=== PATIENT | female | born 1930 | race Caucasian/White ===

== ENCOUNTER → 2016-06-17 | Outpatient (CLI) | payer MEDICARE, BC ==
--- NOTE | 2016-06-17 13:11 | FL ---
EXAMINATION TYPE: FL barium swallow w video DATE OF EXAM: 06/17/2016 12:08 PM COMPARISON: NONE HISTORY: Dysphagia, R13.10. FINDINGS: Patient was evaluated in real-time fluoroscopy in the lateral projection while ingesting barium mixe d with liquids and solids. No aspiration. Patient's cough reflex was intact. Some laryngeal penetra tion was present on thin liquids. See dictated report from speech pathology.
== END | disposition home or self-care (01) ==
LOC: RADFLMAIN 10:58
PROVIDERS: ATTEND Family Medicine
DX: R13.10 Dysphagia, unspecified (principal)
CPT/HCPCS: 74230

== ENCOUNTER → 2016-09-10 | Outpatient (CLI) | payer MEDICARE, BC ==
[2016-09-10 16:05] LABS: ANA w/Reflex to Titer NEGATIVE (NEGATIVE)
[2016-09-12 06:20] LABS: Vitamin E (Alpha Tocopherol) 1185 ug/dL (500-1800)
== END ==
LOC: LABWHC1 09:39
PROVIDERS: ATTEND Psychiatry & Neurology Neurology
DX: G62.9 Polyneuropathy, unspecified (principal); G25.9 Extrapyramidal and movement disorder, unspecified; R27.0 Ataxia, unspecified
CPT/HCPCS: 36415; 82390; 82525; 82550; 82607; 82747; 84165; 84207; 84439; 84443; 84446; 84630; 85652; 86038

== ENCOUNTER 2016-09-17 15:26 | Emergency (ER) | payer MEDICARE, BC ==
[2016-09-17] MEDS ORDERED: SODIUM CHLORIDE 0.9% 1,000 ML IV ONE (15:51)
[2016-09-17] MEDS ORDERED: LABETALOL 5 MG/ML VIAL MDV IVP STA (16:01)
[2016-09-17 16:08] LABS: Glucose,Whole Blood 98 mg/dL (75-99)
--- NOTE | 2016-09-17 16:09 | ED ---
General Adult HPI - General Chief complaint: Altered Mental Status Stated complaint: altered mental status Time Seen by Provider: 09/17/16 15:44 Source: patient, EMS Mode of arrival: EMS Limitations: altered mental status - History of Present Illness Initial comments: 86 female date ER for evaluation of altered mental status patient has history of mild heart disease. Patient was having some possible slurred speech earlier speaking slow per family member. Patient is suffering from difficult to control blood pressure as of late. Patient denies any neurological complaints, family states patient's symptoms at this time I resolved. No abnormalities in patient's speech or mental status. Patient states she feels fine. No trauma no fevers no cough no congestion of chest pain recent abdominal pain no nausea vomiting or diarrhea. No change in medications. - Related Data Home Medications Medication Instructions Recorded Confirmed Aspirin EC [Ecotrin Low Dose] 81 mg PO DAILY 09/17/16 09/17/16 Atorvastatin [Lipitor] 10 mg PO DAILY 09/17/16 09/17/16 Cetirizine HCl [Zyrtec] 10 mg PO DAILY PRN 09/17/16 09/17/16 Cholecalciferol [Vitamin D3] 2,000 unit PO DAILY 09/17/16 09/17/16 Diclofenac Potassium [Cataflam] 50 mg PO BID PRN 09/17/16 09/17/16 Docusate [Colace] 100 mg PO DAILY 09/17/16 09/17/16 Omeprazole 40 mg PO AC-BRKFST 09/17/16 09/17/16 Ubidecarenone [Co Q-10] 100 mg PO DAILY 09/17/16 09/17/16 Previous Rx's Medication Instructions Recorded Folic Acid 1 mg PO DAILY@1200 #30 tab 09/19/16 Multivitamins, Thera [Multivitamin 1 each PO DAILY@1200 #30 tab 09/19/16 (formulary)] Thiamine [Vitamin B-1] 100 mg PO DAILY@1200 #30 tab 09/19/16 Fludrocortisone [Florinef] 0.1 mg PO DAILY #30 tab 09/20/16 Losartan [Cozaar] 25 mg PO BID #60 tab 09/20/16 amLODIPine [Norvasc] 5 mg PO BID #60 tab 09/20/16 Allergies Allergy/AdvReac Type Severity Reaction Status Date / Time Iodinated Contrast Media - AdvReac Nausea & Verified 09/17/16 19:38 Oral and Vomiting Review of Systems ROS Statement: Those systems with pertinent positive or pertinent negative responses have been documented in the HPI. ROS Other: All systems not noted in ROS Statement are negative. Past Medical History Past Medical History: Hyperlipidemia, Hypertension Additional Past Medical History / Comment(s): patient states she has "balance problems" and walks with a walker History of Any Multi-Drug Resistant Organisms: None Reported Past Surgical History: Tonsillectomy Additional Past Surgical History / Comment(s): right side mastectomy Past Psychological History: No Psychological Hx Reported Smoking Status: Former smoker Past Alcohol Use History: None Reported Past Drug Use History: None Reported General Exam Limitations: altered mental status General appearance: alert, in no apparent distress Head exam: Present: atraumatic, normocephalic, normal inspection Eye exam: Present: normal appearance, PERRL, EOMI. Absent: scleral icterus, conjunctival injection, periorbital swelling ENT exam: Present: normal exam, mucous membranes moist Neck exam: Present: normal inspection. Absent: tenderness, meningismus, lymphadenopathy Respiratory exam: Present: normal lung sounds bilaterally. Absent: respiratory distress, wheezes, rales, rhonchi, stridor Cardiovascular Exam: Present: regular rate, normal rhythm, normal heart sounds. Absent: systolic murmur, diastolic murmur, rubs, gallop, clicks GI/Abdominal exam: Present: soft, normal bowel sounds. Absent: distended, tenderness, guarding, rebound, rigid Extremities exam: Present: normal inspection, full ROM, normal capillary refill. Absent: tenderness, pedal edema, joint swelling, calf tenderness Back exam: Present: normal inspection Neurological exam: Present: alert, oriented X3, CN II-XII intact Psychiatric exam: Present: normal affect, normal mood Skin exam: Present: warm, dry, intact, normal color. Absent: rash Course Vital Signs 09/17/16 09/17/16 09/17/16 15:29 16:38 16:44 Temperature 96.1 F L Pulse Rate 95 68 68 Respiratory 16 18 18 Rate Blood Pressure 216/107 200/100 116/59 O2 Sat by Pulse 98 95 99 Oximetry 09/17/16 09/17/16 16:49 18:24 Temperature 97.7 F Pulse Rate 68 80 Respiratory 18 18 Rate Blood Pressure 137/68 173/93 O2 Sat by Pulse 99 100 Oximetry EKG Findings - EKG Comments: EKG Findings:: EKG shows sinus rhythm rate of 94, NM 180, QRS 80, QTC 470 Medical Decision Making - Medical Decision Making 86 female here for evaluation. Patient coming in for evaluation of altered mental status, CT brain x-ray laboratory is negative, patient's blood pressure is now improved in mental status is improving can be discharged home - Lab Data Result diagrams: 09/17/16 15:50 09/17/16 15:50 Lab Results 09/17/16 09/17/16 09/17/16 Range/Units 15:50 15:50 15:50 WBC 6.5 (3.8-10.6) k/uL RBC 4.67 (3.80-5.40) m/uL Hgb 13.6 (11.4-16.0) gm/dL Hct 42.2 (34.0-46.0) % MCV 90.4 (80.0-100.0) fL MCH 29.2 (25.0-35.0) pg MCHC 32.3 (31.0-37.0) g/dL RDW 14.8 (11.5-15.5) % Plt Count 252 (150-450) k/uL Neutrophils % 52 % Lymphocytes % 37 % Monocytes % 6 % Eosinophils % 2 % Basophils % 1 % Neutrophils # 3.4 (1.3-7.7) k/uL Lymphocytes # 2.4 (1.0-4.8) k/uL Monocytes # 0.4 (0-1.0) k/uL Eosinophils # 0.1 (0-0.7) k/uL Basophils # 0.1 (0-0.2) k/uL PT (9.0-12.0) sec INR (<1.1) APTT (22.0-30.0) sec Sodium (137-145) mmol/L Potassium (3.5-5.1) mmol/L Chloride (98-107) mmol/L Carbon Dioxide (22-30) mmol/L Anion Gap mmol/L BUN (7-17) mg/dL Creatinine (0.52-1.04) mg/dL Est GFR (MDRD) Af Amer (>60 ml/min/1.73 sqM) Est GFR (MDRD) Non-Af (>60 ml/min/1.73 sqM) Glucose (74-99) mg/dL POC Glucose (mg/dL) (75-99) mg/dL POC Glu Animal Surgeon ID Calcium (8.4-10.2) mg/dL Total Bilirubin (0.2-1.3) mg/dL AST (14-36) U/L ALT (9-52) U/L Alkaline Phosphatase (38-126) U/L Ammonia <9 (<30) umol/L Total Creatine Kinase 37 (30-135) U/L CK-MB (CK-2) 1.1 (0.0-2.4) ng/mL CK-MB (CK-2) Rel Index 3.0 Troponin I <0.012 (0.000-0.034) ng/mL Total Protein (6.3-8.2) g/dL Albumin (3.5-5.0) g/dL Urine Color Urine Appearance (Clear) Urine pH (5.0-8.0) Ur Specific [place] (1.001-1.035) Urine Protein (Negative) Urine Glucose (UA) (Negative) Urine Ketones (Negative) Urine Blood (Negative) Urine Nitrite (Negative) Urine Bilirubin (Negative) Urine Urobilinogen (<2.0) mg/dL Ur Leukocyte Esterase (Negative) Urine Opiates Screen (NotDetected) Ur Oxycodone Screen (NotDetected) Urine Methadone Screen (NotDetected) Ur Propoxyphene Screen (NotDetected) Ur Barbiturates Screen (NotDetected) U Tricyclic Antidepress (NotDetected) Ur Phencyclidine Scrn (NotDetected) Ur Amphetamines Screen (NotDetected) U Methamphetamines Scrn (NotDetected) U Benzodiazepines Scrn (NotDetected) Urine Cocaine Screen (NotDetected) U Marijuana (THC) Screen (NotDetected) 09/17/16 09/17/16 09/17/16 Range/Units 15:50 15:50 16:06 WBC (3.8-10.6) k/uL RBC (3.80-5.40) m/uL Hgb (11.4-16.0) gm/dL Hct (34.0-46.0) % MCV (80.0-100.0) fL MCH (25.0-35.0) pg MCHC (31.0-37.0) g/dL RDW (11.5-15.5) % Plt Count (150-450) k/uL Neutrophils % % Lymphocytes % % Monocytes % % Eosinophils % % Basophils % % Neutrophils # (1.3-7.7) k/uL Lymphocytes # (1.0-4.8) k/uL Monocytes # (0-1.0) k/uL Eosinophils # (0-0.7) k/uL Basophils # (0-0.2) k/uL PT 10.7 (9.0-12.0) sec INR 1.1 (<1.1) APTT 24.9 (22.0-30.0) sec Sodium 143 (137-145) mmol/L Potassium 4.4 (3.5-5.1) mmol/L Chloride 104 (98-107) mmol/L Carbon Dioxide 27 (22-30) mmol/L Anion Gap 12 mmol/L BUN 16 (7-17) mg/dL Creatinine 0.77 (0.52-1.04) mg/dL Est GFR (MDRD) Af Amer >60 (>60 ml/min/1.73 sqM) Est GFR (MDRD) Non-Af >60 (>60 ml/min/1.73 sqM) Glucose 126 H (74-99) mg/dL POC Glucose (mg/dL) 98 (75-99) mg/dL POC Glu Animal Surgeon ID PetitMary ocampolyn Calcium 10.6 H (8.4-10.2) mg/dL Total Bilirubin 1.3 (0.2-1.3) mg/dL AST 20 (14-36) U/L ALT 23 (9-52) U/L Alkaline Phosphatase 73 (38-126) U/L Ammonia (<30) umol/L Total Creatine Kinase (30-135) U/L CK-MB (CK-2) (0.0-2.4) ng/mL CK-MB (CK-2) Rel Index Troponin I (0.000-0.034) ng/mL Total Protein 8.1 (6.3-8.2) g/dL Albumin 4.8 (3.5-5.0) g/dL Urine Color Urine Appearance (Clear) Urine pH (5.0-8.0) Ur Specific [place] (1.001-1.035) Urine Protein (Negative) Urine Glucose (UA) (Negative) Urine Ketones (Negative) Urine Blood (Negative) Urine Nitrite (Negative) Urine Bilirubin (Negative) Urine Urobilinogen (<2.0) mg/dL Ur Leukocyte Esterase (Negative) Urine Opiates Screen (NotDetected) Ur Oxycodone Screen (NotDetected) Urine Methadone Screen (NotDetected) Ur Propoxyphene Screen (NotDetected) Ur Barbiturates Screen (NotDetected) U Tricyclic Antidepress (NotDetected) Ur Phencyclidine Scrn (NotDetected) Ur Amphetamines Screen (NotDetected) U Methamphetamines Scrn (NotDetected) U Benzodiazepines Scrn (NotDetected) Urine Cocaine Screen (NotDetected) U Marijuana (THC) Screen (NotDetected) 09/17/16 Range/Units 17:05 WBC (3.8-10.6) k/uL RBC (3.80-5.40) m/uL Hgb (11.4-16.0) gm/dL Hct (34.0-46.0) % MCV (80.0-100.0) fL MCH (25.0-35.0) pg MCHC (31.0-37.0) g/dL RDW (11.5-15.5) % Plt Count (150-450) k/uL Neutrophils % % Lymphocytes % % Monocytes % % Eosinophils % % Basophils % % Neutrophils # (1.3-7.7) k/uL Lymphocytes # (1.0-4.8) k/uL Monocytes # (0-1.0) k/uL Eosinophils # (0-0.7) k/uL Basophils # (0-0.2) k/uL PT (9.0-12.0) sec INR (<1.1) APTT (22.0-30.0) sec Sodium (137-145) mmol/L Potassium (3.5-5.1) mmol/L Chloride (98-107) mmol/L Carbon Dioxide (22-30) mmol/L Anion Gap mmol/L BUN (7-17) mg/dL Creatinine (0.52-1.04) mg/dL Est GFR (MDRD) Af Amer (>60 ml/min/1.73 sqM) Est GFR (MDRD) Non-Af (>60 ml/min/1.73 sqM) Glucose (74-99) mg/dL POC Glucose (mg/dL) (75-99) mg/dL POC Glu Animal Surgeon ID Calcium (8.4-10.2) mg/dL Total Bilirubin (0.2-1.3) mg/dL AST (14-36) U/L ALT (9-52) U/L Alkaline Phosphatase (38-126) U/L Ammonia (<30) umol/L Total Creatine Kinase (30-135) U/L CK-MB (CK-2) (0.0-2.4) ng/mL CK-MB (CK-2) Rel Index Troponin I (0.000-0.034) ng/mL Total Protein (6.3-8.2) g/dL Albumin (3.5-5.0) g/dL Urine Color Light Yellow Urine Appearance Clear (Clear) Urine pH 7.0 (5.0-8.0) Ur Specific [place] 1.003 (1.001-1.035) Urine Protein Negative (Negative) Urine Glucose (UA) Negative (Negative) Urine Ketones Negative (Negative) Urine Blood Negative (Negative) Urine Nitrite Negative (Negative) Urine Bilirubin Negative (Negative) Urine Urobilinogen <2.0 (<2.0) mg/dL Ur Leukocyte Esterase Negative (Negative) Urine Opiates Screen Not Detected (NotDetected) Ur Oxycodone Screen Not Detected (NotDetected) Urine Methadone Screen Not Detected (NotDetected) Ur Propoxyphene Screen Not Detected (NotDetected) Ur Barbiturates Screen Not Detected (NotDetected) U Tricyclic Antidepress Not Detected (NotDetected) Ur Phencyclidine Scrn Not Detected (NotDetected) Ur Amphetamines Screen Not Detected (NotDetected) U Methamphetamines Scrn Not Detected (NotDetected) U Benzodiazepines Scrn Not Detected (NotDetected) Urine Cocaine Screen Not Detected (NotDetected) U Marijuana (THC) Screen Not Detected (NotDetected) - Radiology Data Radiology results: report reviewed (CT brain and chest x-ray is negative for acute disease), image reviewed Disposition Clinical Impression: Altered mental status, Hypertension Disposition: HOME SELF-CARE Condition: Good Instructions: Altered Mental Status (ED) Referrals: Nonstaff,Physician [Primary Care Provider] - 1-2 days
[2016-09-17 16:11] LABS: Basophils # (A) 0.1 k/uL (0-0.2); Basophils % (A) 1 %; CH 29.1; CHCM 32.4; Eosinophils # (A) 0.1 k/uL (0-0.7); Eosinophils % (A) 2 %; HCT 42.2 % (34.0-46.0); HDW 2.67; HGB 13.6 gm/dL (11.4-16.0); Luc # (Auto) 0.14; Luc % (Auto) 2; Lymphocytes # (A) 2.4 k/uL (1.0-4.8); Lymphocytes % (A) 37 %; MCH 29.2 pg (25.0-35.0); MCHC 32.3 g/dL (31.0-37.0); MCV 90.4 fL (80.0-100.0); Mean Platelet Volume 6.6; Monocytes # (A) 0.4 k/uL (0-1.0); Monocytes % (A) 6 %; Neutrophils # (A) 3.4 k/uL (1.3-7.7); Neutrophils % (A) 52 %; RBC 4.67 m/uL (3.80-5.40); RDW 14.8 % (11.5-15.5); WBC 6.5 k/uL (3.8-10.6); WBC (Perox) 6.68
[2016-09-17 16:13] LABS: ALT 23 U/L (9-52); AST 20 U/L (14-36); Alkaline Phosphatase 73 U/L (38-126); Anion Gap 12 mmol/L; Blood Urea Nitrogen 16 mg/dL (7-17); Calcium 10.6 mg/dL (8.4-10.2); Carbon Dioxide 27 mmol/L (22-30); Chloride 104 mmol/L (98-107); Glucose 126 mg/dL (74-99); Non-African American GFR(MDRD) >60 (>60 ml/min/1.73 sqM); Potassium 4.4 mmol/L (3.5-5.1); Sodium 143 mmol/L (137-145); Total Bilirubin 1.3 mg/dL (0.2-1.3); Total Protein 8.1 g/dL (6.3-8.2)
[2016-09-17 16:15] LABS: INR 1.1 (<1.1); Partial Thromboplastin Time 24.9 sec (22.0-30.0); Prothrombin Time 10.7 sec (9.0-12.0)
--- NOTE | 2016-09-17 16:23 | CT ---
EXAMINATION TYPE: CT brain wo con DATE OF EXAM: 09/17/2016 4:20 PM COMPARISON: 04/01/2016 HISTORY: Altered mental status. CT DLP: 1121.[address] of the brain was performed. The ventricles, basal cisterns and sulci overlying the cerebral convexities demonstrate mild enlargem ent. There is no evidence for intracranial hemorrhage or sulcal effacement. There is decreased attenuation about the periventricular white matter and deep white matter of both c erebral hemispheres, compatible with chronic small vessel ischemia. Differential diagnosis does inclu de demyelination. No mass effects are seen.No midline shift. Osseous calvarium is intact. If symptoms persist consider MRI. IMPRESSION: 1. Age related atrophic and chronic small vessel ischemic change without acute intracranial process s een at this time.
[2016-09-17 16:28] LABS: Creatine Kinase 37 U/L (30-135)
--- NOTE | 2016-09-17 16:33 | XR ---
EXAMINATION TYPE: XR chest 2V DATE OF EXAM: 09/17/2016 4:25 PM COMPARISON: NONE HISTORY: Shortness of breath TECHNIQUE: Frontal and lateral views of the chest are obtained. FINDINGS: Scattered senescent parenchymal changes noted. Hyperinflation compatible with COPD. No evidence for infiltrate. No evidence for atelectasis. Heart size is stable. Mediastinal structures are stable and grossly unremarkable. No evidence for hilar prominence. Degenerative changes dorsal spine. IMPRESSION: 1. No evidence for acute pulmonary disease.
[2016-09-17 16:41] LABS: Creatine Kinase MB 1.1 ng/mL (0.0-2.4); Troponin I <0.012 ng/mL (0.000-0.034)
[2016-09-17 16:44] VITALS: RESP 18
[2016-09-17 17:16] LABS: Appearance,Urine Clear (Clear); Bilirubin,Urine Negative (Negative); Glucose,Urine (UA) Negative (Negative); Ketones,Urine Negative (Negative); Leukocyte Esterase,Urine Negative (Negative); Nitrite,Urine Negative (Negative); Protein,Urine Negative (Negative); Specific Gravity,Urine 1.003 (1.001-1.035); UA Billing (MACRO vs. MICRO) CHEM; Urobilinogen,Urine <2.0 mg/dL (<2.0)
[2016-09-17 18:25] VITALS: BP 173/93; PULSE 80; TEMP 97.7
== END 2016-09-17 18:25 | disposition home or self-care (01) ==
LOC: EC 15:26
DX: R41.82 Altered mental status, unspecified (principal); I10 Essential (primary) hypertension; E78.5 Hyperlipidemia, unspecified; Z87.891 Personal history of nicotine dependence; Z79.82 Long term (current) use of aspirin; Z79.899 Other long term (current) drug therapy
CPT/HCPCS: 36415; 70450; 71020; 80053; 80306; 81003; 82140; 82550; 82553; 84484; 85025; 85610; 85730; 87086; 93005; 96361; 96374; 99285

== ENCOUNTER 2016-09-17 19:19 | Inpatient (IN) | payer MEDICARE, BC ==
--- NOTE | 2016-09-17 19:48 | ED ---
General Adult HPI - General Chief complaint: Syncope Stated complaint: Hypertension Time Seen by Provider: 09/17/16 19:25 Source: patient, family, RN notes reviewed, old records reviewed Mode of arrival: EMS Limitations: no limitations - History of Present Illness Initial comments: This is a 6-year-old female here for evaluation of syncope. Patient has medical history of high blood pressure or cholesterol. Patient was in ER earlier today for altered mental status. Patient is to be evaluated syncopal event. Patient was discharged from ER asymptomatic able to ambulate. Patient went home she has syncopal and then had a witnessed syncopal event by EMS. Patient's brought in by EMS. Patient herself has no complaints no headache chest pain shortness of breath or abdominal pain. - Related Data Home Medications Medication Instructions Recorded Confirmed Aspirin EC [Ecotrin Low Dose] 81 mg PO DAILY 09/17/16 09/17/16 Atorvastatin [Lipitor] 10 mg PO DAILY 09/17/16 09/17/16 Cetirizine HCl [Zyrtec] 10 mg PO DAILY PRN 09/17/16 09/17/16 Cholecalciferol [Vitamin D3] 2,000 unit PO DAILY 09/17/16 09/17/16 Diclofenac Potassium [Cataflam] 50 mg PO BID PRN 09/17/16 09/17/16 Docusate [Colace] 100 mg PO DAILY 09/17/16 09/17/16 Losartan Potassium [Cozaar] 25 mg PO HS 09/17/16 09/17/16 Omeprazole 40 mg PO AC-BRKFST 09/17/16 09/17/16 Ubidecarenone [Co Q-10] 100 mg PO DAILY 09/17/16 09/17/16 Allergies Allergy/AdvReac Type Severity Reaction Status Date / Time Iodinated Contrast Media - AdvReac Nausea & Verified 09/17/16 19:38 Oral and Vomiting Review of Systems ROS Statement: Those systems with pertinent positive or pertinent negative responses have been documented in the HPI. ROS Other: All systems not noted in ROS Statement are negative. Past Medical History Past Medical History: Hyperlipidemia, Hypertension Additional Past Medical History / Comment(s): patient states she has "balance problems" and walks with a walker History of Any Multi-Drug Resistant Organisms: None Reported Past Surgical History: Tonsillectomy Additional Past Surgical History / Comment(s): right side mastectomy Past Psychological History: No Psychological Hx Reported Smoking Status: Former smoker Past Alcohol Use History: None Reported Past Drug Use History: None Reported General Exam Limitations: no limitations General appearance: alert, in no apparent distress, anxious, cachectic Head exam: Present: atraumatic, normocephalic, normal inspection Eye exam: Present: normal appearance, PERRL, EOMI. Absent: scleral icterus, conjunctival injection, periorbital swelling ENT exam: Present: normal exam, mucous membranes moist Neck exam: Present: normal inspection. Absent: tenderness, meningismus, lymphadenopathy Respiratory exam: Present: normal lung sounds bilaterally. Absent: respiratory distress, wheezes, rales, rhonchi, stridor Cardiovascular Exam: Present: regular rate, normal rhythm, normal heart sounds. Absent: systolic murmur, diastolic murmur, rubs, gallop, clicks GI/Abdominal exam: Present: soft, normal bowel sounds. Absent: distended, tenderness, guarding, rebound, rigid Extremities exam: Present: normal inspection, full ROM, normal capillary refill. Absent: tenderness, pedal edema, joint swelling, calf tenderness Back exam: Present: normal inspection Neurological exam: Present: alert, oriented X3, CN II-XII intact Psychiatric exam: Present: normal affect, normal mood Skin exam: Present: warm, dry, intact, normal color. Absent: rash Course Vital Signs 09/17/16 19:20 Temperature 96.0 F L Pulse Rate 76 Respiratory 16 Rate Blood Pressure 172/79 O2 Sat by Pulse 99 Oximetry - Reevaluation(s) Reevaluation #1: 09/17/16 20:05 Patient again is remaining without complaints, family at bedside EKG Findings - EKG Comments: EKG Findings:: EKG shows normal sinus rhythm rate of 67, UT 186, QRS 86, QTc 462 Medical Decision Making - Medical Decision Making 80 [facility] the ER for repeat visit of altered mental status, patient to the syncopal event 2 after discharge today. She was in ER earlier today and seen by myself evaluation regarding episode of altered mental status, TIA type symptoms. At this time patient's review labs again reviewed from earlier in the day, patient will be admitted Disposition Clinical Impression: Altered mental status, Hypertension, Vasovagal syncope Disposition: ADMITTED IP TO THIS HOSP Condition: Undetermined Referrals: Belkis Buchanan MD [Primary Care Provider] - 1-2 days
[2016-09-17] MEDS ORDERED: SODIUM CHLORIDE 0.9% 1,000 ML IV STA ×2 (20:01)
[2016-09-17] MEDS ORDERED: NITROGLYCERIN SL TABS 0.4 MG TAB SUBLINGUAL PRN (20:01)
[2016-09-17] MEDS ORDERED: ASPIRIN 81 MG CHEW PO STA (20:01)
[2016-09-17 20:18] LABS: Basophils % (A) 0 %; CH 29.7; CHCM 33.3; Eosinophils # (A) 0.1 k/uL (0-0.7); Eosinophils % (A) 2 %; HCT 41.4 % (34.0-46.0); HDW 2.78; HGB 13.7 gm/dL (11.4-16.0); Luc # (Auto) 0.12; Luc % (Auto) 2; Lymphocytes # (A) 1.9 k/uL (1.0-4.8); Lymphocytes % (A) 32 %; MCH 29.7 pg (25.0-35.0); MCHC 33.2 g/dL (31.0-37.0); MCV 89.6 fL (80.0-100.0); Mean Platelet Volume 6.6; Monocytes # (A) 0.4 k/uL (0-1.0); Monocytes % (A) 6 %; Neutrophils # (A) 3.5 k/uL (1.3-7.7); Neutrophils % (A) 58 %; RBC 4.62 m/uL (3.80-5.40); RDW 14.6 % (11.5-15.5); WBC 5.9 k/uL (3.8-10.6); WBC (Perox) 5.97
[2016-09-17 20:33] LABS: INR 1.1 (<1.1); Partial Thromboplastin Time 23.6 sec (22.0-30.0); Prothrombin Time 10.8 sec (9.0-12.0)
[2016-09-17 20:34] LABS: ALT 20 U/L (9-52); AST 22 U/L (14-36); Alkaline Phosphatase 56 U/L (38-126); Anion Gap 12 mmol/L; Blood Urea Nitrogen 16 mg/dL (7-17); Calcium 10.2 mg/dL (8.4-10.2); Carbon Dioxide 26 mmol/L (22-30); Chloride 105 mmol/L (98-107); Glucose 100 mg/dL (74-99); Magnesium 1.8 mg/dL (1.6-2.3); Non-African American GFR(MDRD) >60 (>60 ml/min/1.73 sqM); Phosphorous 3.5 mg/dL (2.5-4.5); Potassium 4.7 mmol/L (3.5-5.1); Sodium 143 mmol/L (137-145); Total Bilirubin 1.2 mg/dL (0.2-1.3); Total Protein 7.4 g/dL (6.3-8.2)
[2016-09-17] MEDS ORDERED: diphenhydrAMINE 50 MG/ML 1 ML VIAL IVP STA (20:52)
[2016-09-17] MEDS ORDERED: FAMOTIDINE 20 MG/2 ML VIAL IV STA (20:52)
[2016-09-17] MEDS ORDERED: methylPREDNISolone SOD SUCCI 125 MG/2 ML VIAL IV STA (20:52)
[2016-09-17] MEDS ORDERED: RX INFO: IV CONTRAST WAS GIVEN 1 EACH MISC MISCELLANE PRN (20:52)
[2016-09-17 20:56] LABS: Creatine Kinase MB 1.1 ng/mL (0.0-2.4); Troponin I 0.027 ng/mL (0.000-0.034)
--- NOTE | 2016-09-17 21:59 | CT ---
EXAMINATION TYPE: CT angio chest DATE OF EXAM: 09/17/2016 9:52 PM COMPARISON: NONE HISTORY: Hypertension and altered mental status. CT DLP: 115.7 mGycm Automated exposure control for dose reduction was used. CONTRAST: CTA scan of the thorax is performed with IV Contrast, patient injected with 70 mL of Omnipaque 350, p ulmonary embolism protocol. There are 3-D post processed images.. FINDINGS: The lungs are clear of consolidation. There is no evidence of a pulmonary mass. There is no pleural e ffusion. Heart size is fairly normal. Thoracic aorta is atheromatous. I see no filling defects in the pulmonary arteries. There are no hilar masses. There is no mediastina l adenopathy. There is mild aneurysm of the ascending aorta that measures 4 cm. The bony thorax appea rs intact. There is spurring in the thoracic spine. IMPRESSION: NO EVIDENCE OF PULMONARY EMBOLISM. MILD ANEURYSM OF THE ASCENDING AORTA. ATHEROSCLEROTIC VASCULAR DIS EASE.
[2016-09-17] MEDS ORDERED: LORATADINE 10 MG TAB PO PRN (23:55)
[2016-09-17] MEDS ORDERED: ETODOLAC 200 MG CAPSULE PO PRN (23:55)
[2016-09-18] MEDS: SODIUM CHLORIDE 0.9% 1,000 ML IV SCH ×3 (00:50→11:30)
[2016-09-18] MEDS: LOSARTAN 25 MG TAB PO SCH ×2 (01:46→20:15)
[2016-09-18 02:36] LABS: Creatine Kinase MB 1.1 ng/mL (0.0-2.4); Troponin I 0.019 ng/mL (0.000-0.034)
[2016-09-18] MEDS: PANTOPRAZOLE 40 MG TABLET PO SCH (06:35)
[2016-09-18] MEDS: DOCUSATE 100 MG CAP PO SCH (08:48)
[2016-09-18] MEDS: ATORVASTATIN 10 MG TAB PO SCH (08:48)
[2016-09-18] MEDS: CHOLECALCIFEROL 1,000 UNIT TAB PO SCH (08:48)
[2016-09-18] MEDS: ASPIRIN 81 MG CHEW PO SCH (08:49)
[2016-09-18] MEDS ORDERED: NON-FORMULARY DRUG (Ubidecarenone [Co Q-10] 100 MG) PO SCH (09:00)
[2016-09-18] MEDS ORDERED: ASPIRIN 325 MG TAB PO SCH (09:00)
[2016-09-18 10:29] LABS: Troponin I 0.014 ng/mL (0.000-0.034)
[2016-09-18 10:33] LABS: Creatine Kinase MB 1.5 ng/mL (0.0-2.4)
--- NOTE | 2016-09-18 10:48 | P.CRDCN ---
History of Present Illness Consult date: 09/18/16 Requesting physician: Yesica Adame Consult reason: sycope Chief complaint: Weakness and syncope History of present illness: This is a pleasant 86-year-old female who gives an excellent history. 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 Overall the patient is quite physically active. Patient presented to the emergency room yesterday, the initial reason she went to the emergency room was because of some symptoms suggestive of a possible CVA. According to the patient , she was at home, felt some numbness and weakness in her left arm and in the left side of her face, she states then that she was unable to get the words out that she was trying to say, she went into the kitchen attempting to take something out of a drawer and was unsure on how to do that. She became quite concerned, pushed the button on her phone to call her sister, was able to communicate enough to let the sister know what was happening, her sister called EMS and patient was brought to the emergency room. EMS note from that admission aren't available. However the blood pressure a documented on arrival was 216/107. According to the patient, they gave her something for a blood pressure, performed a CT of the brain which did not reveal any acute changes and the patient was discharged home. On arrival home, her daughter was helping her into the house, she became extremely weak so her daughter sat her down on the step outside at which time the patient passed out. EMS was called again and this occasion, blood pressure on their arrival 200/103 with a heart rate in the 70s, 99% on room air. Blood pressure on arrival here 172/78, heart rate in the 70s, 99% on room air. Shortly after arrival and orthostatic set of blood pressures were obtained, blood pressure 178/80 lying, 156/70 sitting, 100/60 standing. CBC normal, d-dimer 0.85, potassium 4.7, BUN 16, creatinine 0.7. Troponins 0.027, 0.019. BNP level 400. CT of the chest did not reveal evidence of pulmonary embolism. Mild aneurysm of the ascending aorta noted. At the time of my examination this morning, patient feels well overall, 8 a good breakfast. Patient states that she has lost approximately 20 pounds of weight in the past 4 months, appetite has been poor secondary to difficulty in swallowing. She does follow with Dr. Melgar for this as an outpatient. Past Medical History Past Medical History: Hyperlipidemia, Hypertension Additional Past Medical History / Comment(s): patient states she has "balance problems" and walks with a walker History of Any Multi-Drug Resistant Organisms: None Reported Past Surgical History: Tonsillectomy Additional Past Surgical History / Comment(s): right side mastectomy Past Psychological History: No Psychological Hx Reported Smoking Status: Former smoker Past Alcohol Use History: None Reported Past Drug Use History: None Reported Medications and Allergies Home Medications Medication Instructions Recorded Confirmed Type Aspirin EC [Ecotrin Low Dose] 81 mg PO DAILY 09/17/16 09/17/16 History Atorvastatin [Lipitor] 10 mg PO DAILY 09/17/16 09/17/16 History Cetirizine HCl [Zyrtec] 10 mg PO DAILY PRN 09/17/16 09/17/16 History Cholecalciferol [Vitamin D3] 2,000 unit PO DAILY 09/17/16 09/17/16 History Diclofenac Potassium [Cataflam] 50 mg PO BID PRN 09/17/16 09/17/16 History Docusate [Colace] 100 mg PO DAILY 09/17/16 09/17/16 History Losartan Potassium [Cozaar] 25 mg PO HS 09/17/16 09/17/16 History Omeprazole 40 mg PO AC-BRKFST 09/17/16 09/17/16 History Ubidecarenone [Co Q-10] 100 mg PO DAILY 09/17/16 09/17/16 History Allergies Allergy/AdvReac Type Severity Reaction Status Date / Time Iodinated Contrast Media - AdvReac Nausea & Verified 09/17/16 19:38 Oral and Vomiting Physical Exam Vitals: Vital Signs Temp Pulse Pulse Resp BP BP BP 09/18/16 04:00 98.3 F 83 16 140/72 09/18/16 02:55 97.1 F L 81 16 120/58 09/18/16 00:12 75 16 147/78 09/17/16 23:55 77 18 182/88 09/17/16 23:00 74 16 178/86 09/17/16 21:32 97.1 F L 82 18 175/86 09/17/16 21:00 89 18 169/99 09/17/16 20:48 178/81 156/70 BP Pulse Ox 09/18/16 04:00 97 09/18/16 02:55 95 09/18/16 00:12 97 09/17/16 23:55 98 09/17/16 23:00 98 09/17/16 21:32 09/17/16 21:00 99 09/17/16 20:48 101/59 Intake and Output 09/17/16 09/18/16 09/18/16 22:59 06:59 14:59 Intake Total 300 360 Output Total 450 Balance 300 -90 Intake: IV 300 Sodium Chloride 0.9% 1, 300 000 ml @ 100 mls/hr IV . Q10H PETERSON Rx#:[id number] Oral 360 Output: Urine 450 Other: Voiding Method Bedpan # Voids 1 Weight 40.77 kg 44.5 kg PHYSICAL EXAMINATION: HEENT: Head is atraumatic, normocephalic. Pupils equal, round. Neck is supple. There is no elevated jugular venous pressure. HEART EXAMINATION: S1 and S2 systolic murmur is heard. CHEST EXAMINATION: Lungs are clear to auscultation and precussion. No chest wall tenderness is noted on palpation or with deep breathing. ABDOMEN: Soft, nontender. Bowel sounds are heard. No organomegaly noted. EXTREMITIES: 2+ peripheral pulses with no evidence of peripheral edema and no calf tenderness noted. NEUROLOGIC patient is awake, alert and oriented -3. . Results 09/17/16 20:00 09/17/16 20:00 Cardiac Enzymes 09/18/16 Range/Units 01:49 CK-MB (CK-2) 1.1 (0.0-2.4) ng/mL Troponin I 0.019 (0.000-0.034) ng/mL Current Medications Generic Name Dose Route Start Last Admin Trade Name Freq PRN Reason Stop Dose Admin Aspirin 81 mg 09/18/16 09:00 09/18/16 08:49 Aspirin PO 81 mg DAILY PETERSON Administration Atorvastatin Calcium 10 mg 09/18/16 09:00 09/18/16 08:48 Lipitor PO 10 mg DAILY PETERSON Administration Cholecalciferol 2,000 unit 09/18/16 09:00 09/18/16 08:48 Vitamin D3 PO 2,000 unit DAILY PETERSON Administration Docusate Sodium 100 mg 09/18/16 09:00 09/18/16 08:48 Colace PO 100 mg DAILY PETERSON Administration Etodolac 200 mg 09/17/16 23:55 Lodine PO BID PRN Migraine Headache Sodium Chloride 1,000 mls @ 100 mls/hr 09/17/16 20:15 09/18/16 06:11 Saline 0.9% IV Not Given .Q10H PETERSON Loratadine 10 mg 09/17/16 23:55 Claritin PO DAILY PRN Allergy Symptoms Losartan Potassium 25 mg 09/17/16 23:45 09/18/16 01:46 Cozaar PO 25 mg HS PETERSON Administration Miscellaneous Information 1 each 09/17/16 20:52 Rx Info: Iv Contrast Was Given MISCELLANE 09/19/16 20:52 DAILY PRN Per Protocol Nitroglycerin 0.4 mg 09/17/16 20:01 Nitrostat SUBLINGUAL Q5M PRN Chest Pain Pantoprazole Sodium 40 mg 09/18/16 07:30 09/18/16 06:35 Protonix PO 40 mg AC-BRKFST PETERSON Administration Intake and Output 09/17/16 09/18/16 09/18/16 22:59 06:59 14:59 Intake Total 300 360 Output Total 450 Balance 300 -90 Intake: IV 300 Sodium Chloride 0.9% 1, 300 000 ml @ 100 mls/hr IV . Q10H PETERSON Rx#:[id number] Oral 360 Output: Urine 450 Other: Voiding Method Bedpan # Voids 1 Weight 40.77 kg 44.5 kg EKG Interpretations (text) Shows normal sinus rhythm with no acute changes. Assessment and Plan Plan: Assessment and plan #1 symptoms of left arm and facial weakness with associated expressive aphasia, suggestive of TIA #2 hypertensive urgency, blood pressure on arrival 220/110 #3 syncope, could be secondary to orthostatic hypotension, significant orthostasis noted here. 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 Melgar as an outpatient Plan We will obtain an echocardiogram with Doppler study. Continue to monitor orthostatics every shift. We will request bilateral BISHOP hose stockings and encourage the patient to increase salt intake. Further evaluation for possible TIA. Further recommendations to follow. DNP note has been reviewed, I agree with a documented findings and plan of care. Patient was seen and examined.
[2016-09-18 10:50] LABS: Cholesterol 116 mg/dL (<200); HDL Cholesterol 51 mg/dL (40-60); Triglycerides 59 mg/dL (<150)
[2016-09-18 11:27] VITALS: BMI 16.8
--- NOTE | 2016-09-18 17:30 | US ---
EXAMINATION TYPE: US carotid duplex BILAT DATE OF EXAM: 09/18/2016 5:13 PM COMPARISON: US on PACS CLINICAL HISTORY: stroke. Patient stated had syncopal episode with HTN EXAM MEASUREMENTS: RIGHT: Peak Systolic Velocity (PSV) cm/sec ----- Right CCA: 92.9 ----- Right ICA: 111.3 ----- Right ECA: 111.8 ICA/CCA ratio: 1.2 RIGHT: End Diastole cm/sec ----- Right CCA: 20.2 ----- Right ICA: 24.1 ----- Right ECA: 12.9 LEFT: Peak Systolic Velocity (PSV) cm/sec ----- Left CCA: 110.9 ----- Left ICA: 83.2 ----- Left ECA: 133.9 ICA/CCA ratio: 0.7 LEFT: End Diastole cm/sec ----- Left CCA: 19.7 ----- Left ICA: 15.7 ----- Left ECA: 12.8 VERTEBRALS (direction of flow): Right Vertebral: Antegrade Left Vertebral: Antegrade Mild to moderate intimal wall changes at bilateral carotid bifurcation and PSV is wnl in bilateral CC A and ICA. Abnormally elevated PSV in left ECA. IMPRESSION: There is antegrade flow in the vertebral arteries. The images and measurements suggest c lose to 50% stenosis in both internal carotid arteries. There is 50-70% stenosis in the left external carotid artery. Criteria for Assigning % of Stenosis / Diameter reduction (Estimation based on the indirect measurements of the internal carotid artery velocities (ICA PSV). 1. Normal (no stenosis)=ICA PSV < 125 cm/s: ratio < 2.0: ICA EDV<40 cm/s. 2. Less than 50% stenosis=ICA PSV < 125 cm/s: ratio < 2.0: ICA EDV<40 cm/s. 3. 50 to 69% stenosis=ICA PSV of 125 to 230 cm/s: ration 2.0 ? 4.0: ICA EDV 40-100 cm/s. 4. Greater than 70% stenosis to near occlusion= ICA PSV > 230 cm/s: ratio > 4.0: ICA EDV > 100 cm/s. 5. Near occlusion= ICA PSV velocities may be low or undetectable: variable ratio and ICA EDV. 6. Total occlusion=unable to detect flow.
[2016-09-18] MEDS: HEPARIN SODIUM,PORCINE 5,000 UNIT/ML 1 ML VIAL SQ SCH (20:15)
--- NOTE | 2016-09-18 20:20 | HP ---
DATE OF ADMISSION: 09/17/2016 CHIEF COMPLAINT: Weakness, syncope and change in mental status. HISTORY OF PRESENT ILLNESS: This 86-year-old woman with a past medical history of multiple medical problems, including hypertension, hyperlipidemia, was being followed by Dr. Belkis Buchanan in the outpatient setting. The patient was complaining of some progressive weakness. The patient yesterday had high blood pressure. Subsequently patient also had some change in mental status and the patient also felt weak, mainly on the left side, with numbness of both hands. Patient also apparently had a syncopal episode. Patient did have ( ) syncopal episode by EMS and the patient was taken to [facility] and admitted for further evaluation and treatment. There is no history of fever, rigor, chills. No history of headache or seizures at this time. The glucose is 100. Otherwise, basic labs are also noted. Cardiology and neurology evaluations are in progress. Of note also, a chest CTA was done which showed no evidence of pulmonary embolism and mild aneurysm of the ascending aorta as well as atherosclerotic vascular disease. PAST MEDICAL HISTORY: 1. History of hypertension 2. Hyperlipidemia. 3. History of tonsillectomy. HOME MEDICATIONS: 1. Coenzyme Q 100 mg p.o. daily. 2. Omeprazole 40 mg before breakfast. 3. Cozaar 25 mg at bedtime. 4. Colace 100 mg p.o. daily. 5. Cataflam 50 mg b.i.d. p.r.n. 6. Vitamin D3 2000 daily. 7. Zyrtec 10 mg daily p.r.n. 8. Lipitor 10 mg daily. 9. Ecotrin 81 mg daily. ALLERGIES: IODINATED CONTRAST DYE. FAMILY HISTORY: No history of heart disease or strokes in the family. SOCIAL HISTORY: Previous history of smoking. No current smoking or alcohol. REVIEW OF SYSTEMS: ENT: Diminishing hearing. Diminished vision. CARDIOVASCULAR: No angina, palpitations. RESPIRATORY SYSTEM: As mentioned earlier. GI: No nausea. : No dysuria. NERVOUS SYSTEM: As mentioned earlier. ALLERGY/IMMUNOLOGY: No asthma, hayfever. MUSCULOSKELETAL: As mentioned earlier. HEMATOLOGY/ONCOLOGY: No history of anemia. ENDOCRINE: No history of diabetes, hypothyroidism. CONSTITUTIONAL: As mentioned earlier. DERMATOLOGY: Negative. RHEUMATOLOGY: Negative. PSYCHIATRY: As mentioned earlier. PHYSICAL EXAMINATION: Patient is alert and oriented x3. Pulse 95, blood pressure 104/55, respiration 20, temperature 98 degrees, pulse ox 99% on room air. Orthostatic hypotension present. HEENT: Conjunctivae normal. Oral mucosa moist. NECK: No jugular venous distention. No carotid bruit. No lymph node enlargement. No thyroid enlargement. CARDIOVASCULAR: S1, S2 muffled. Ejection systolic murmur. No S3. No S4. RESPIRATORY: Breath sounds diminished at the bases. A few scattered rhonchi. No crackles. ABDOMEN: Soft, nontender. No mass palpable. LEGS: No edema. No swelling. NERVOUS SYSTEM: Higher functions as mentioned earlier. Moves all 4 limbs. No focal motor or sensory deficit. LYMPHATICS: No lymph node palpable in neck, axillae or groin. SKIN: No ulcer, rash, bleeding. LABS: CBC within normal limits. D-dimer 0.85. Glucose 100. ASSESSMENT: 1. Syncope for evaluation; possible orthostatic hypotension. 2. Weakness of the left side and change in mental status, possible acute transient ischemic attack. 3. Rule out acute metabolic encephalopathy, multifactorial. 4. History of hypertension, essential. 5. Hyperlipidemia. 6. Gait dysfunction. 7. History of right-sided mastectomy. 8. Remote history of nicotine dependence. RECOMMENDATIONS AND DISCUSSION: In this 86-year-old woman who presented with multiple complex medical issues, we will monitor the patient closely, continue the current medication, continue symptomatic treatment. Otherwise, at this time I recommend cardiology and neurology evaluations. Full neurovascular workup. I also recommend a 2-D echo and carotid Doppler. Repeat labs guarded prognosis because of multiple complex medical issues. Further recommendations to follow. A copy of this dictation is being forwarded to Dr. Buchanan, who is the primary physician. SIMÓN
[2016-09-19] MEDS ORDERED: METOPROLOL TARTRATE 12.5 MG TAB PO STA (00:15)
[2016-09-19] MEDS: MELATONIN 3 MG TABLET PO SCH ×2 (02:12→21:00)
[2016-09-19] MEDS: PANTOPRAZOLE 40 MG TABLET PO SCH (06:32)
[2016-09-19] MEDS: SODIUM CHLORIDE 0.9% 1,000 ML IV SCH ×3 (06:32→22:04)
[2016-09-19 06:56] LABS: Basophils % (A) 0 %; CHCM 32.2; Eosinophils # (A) 0.1 k/uL (0-0.7); Eosinophils % (A) 1 %; HDW 2.69; HGB 10.8 gm/dL (11.4-16.0); Luc # (Auto) 0.12; Luc % (Auto) 2; Lymphocytes # (A) 2.5 k/uL (1.0-4.8); Lymphocytes % (A) 30 %; MCH 29.6 pg (25.0-35.0); MCHC 32.7 g/dL (31.0-37.0); MCV 90.7 fL (80.0-100.0); Mean Platelet Volume 7.1; Monocytes # (A) 0.4 k/uL (0-1.0); Monocytes % (A) 5 %; Neutrophils # (A) 5.1 k/uL (1.3-7.7); Neutrophils % (A) 62 %; RBC 3.64 m/uL (3.80-5.40); RDW 14.9 % (11.5-15.5); WBC 8.2 k/uL (3.8-10.6); WBC (Perox) 8.34
[2016-09-19 07:05] LABS: Anion Gap 8 mmol/L; Blood Urea Nitrogen 14 mg/dL (7-17); Calcium 9.1 mg/dL (8.4-10.2); Carbon Dioxide 23 mmol/L (22-30); Chloride 113 mmol/L (98-107); Cholesterol 107 mg/dL (<200); Glucose 90 mg/dL (74-99); HDL Cholesterol 46 mg/dL (40-60); Non-African American GFR(MDRD) >60 (>60 ml/min/1.73 sqM); Potassium 3.9 mmol/L (3.5-5.1); Sodium 144 mmol/L (137-145); Triglycerides 129 mg/dL (<150)
--- NOTE | 2016-09-19 07:59 | CONS ---
DATE OF CONSULTATION: 09/18/2016 CHIEF COMPLAINT: Syncope. HISTORY OF PRESENT ILLNESS: Mrs. Whitfield is a pleasant, 86-year-old female who is being evaluated today on 09/18/16 by the neurology service per the request of Dr. Adame for recurrent syncope. The patient was brought into [facility] Emergency Room after she had a syncopal spell at home. The patient was recently seen in the emergency room for some altered mental status and was found to have elevated blood pressure. She was treated and discharged from the emergency room but at home she had a syncopal episode. The EMS was called and when EMS arrived the patient had another episode. No seizure-like activity was described or witnessed. When she arrived this time to the emergency room, her blood pressure was slightly elevated at 172/79. The patient denies having any chest palpitations or significant lightheadedness prior to this syncope. A CT angiogram of the chest was done, which showed no evidence of any pulmonary embolism. Her D-dimer was slightly elevated at 0.85. Her carotid Doppler showed approximately 50% stenosis involving bilateral internal carotid artery. Her CBC, comprehensive metabolic profile, fasting lipid panel and cardiac enzymes were normal. At the time of my evaluation, the patient is sitting up in her bed and appears to be in no acute distress. She denies any recurrence of any syncopal or presyncopal symptoms. PAST MEDICAL HISTORY: Hypertension, dyslipidemia, gastroesophageal reflux disease. PAST SURGICAL HISTORY: Tonsillectomy. SOCIAL HISTORY: The patient is a former smoker. She denies any alcohol for drug use. FAMILY HISTORY: Noncontributory. HOME MEDICATIONS: Reviewed in the chart. ALLERGIES: IV DYE. REVIEW OF SYSTEMS: As mentioned above and otherwise negative. PHYSICAL EXAM: Vital signs show a temperature of 97.3, pulse 89, respirations 20, blood pressure 129/60. GENERAL APPEARANCE: The patient is a thin, elderly female who appears to be in no acute distress. HEENT: Normocephalic, atraumatic, no facial asymmetry is seen. Extraocular muscles are intact. Neck is supple with no masses felt. CARDIOVASCULAR: Regular rate and rhythm. ABDOMEN: Nontender, nondistended. Extremities showed no edema or clubbing. NEUROLOGICAL EXAM: The patient is alert, aware, and oriented x3. Speech and language are normal. Strength is full in all 4 extremities. Sensory exam showed diminished light touch sensation in bilateral distal lower extremities. No tremors or seizure-like activity is seen. No facial asymmetry is noticed on cranial nerve testing. IMPRESSION: 1. Recurrent syncope. 2. Uncontrolled hypertension. 3. Distal lower extremity sensory deficit. RECOMMENDATION: The patient did have multiple witnessed syncopal episodes with no seizure-like activity described. She has been having uncontrolled hypertension, which was recently treated in the emergency room as mentioned above. The patient likely had episodes of hypotension. I do recommend further cardiac workup. From a neurology standpoint, an EEG will be ordered. As for her lower extremity sensory deficit, I do recommend further outpatient neurophysiological workup. Continue neuro checks. I will continue to follow with you. Further recommendations to follow. Thank you for allowing me to participate in the care of your patient. If you have any questions, please call free to contact me.
[2016-09-19] MEDS: CHOLECALCIFEROL 1,000 UNIT TAB PO SCH (10:25)
[2016-09-19] MEDS: ASPIRIN 81 MG CHEW PO SCH (10:25)
[2016-09-19] MEDS: DOCUSATE 100 MG CAP PO SCH (10:25)
[2016-09-19] MEDS: THIAMINE 100 MG TAB PO SCH (10:25)
[2016-09-19] MEDS: ATORVASTATIN 10 MG TAB PO SCH (10:25)
[2016-09-19] MEDS: FOLIC ACID 1 MG TAB PO SCH (10:25)
[2016-09-19] MEDS: HEPARIN SODIUM,PORCINE 5,000 UNIT/ML 1 ML VIAL SQ SCH ×2 (10:26→21:00)
[2016-09-19] MEDS: MULTIVITAMINS, THERA 1 EACH TAB PO SCH (10:26)
--- NOTE | 2016-09-19 11:46 | ECHOF ---
Referral Reason:Stroke MEASUREMENTS -------- HEIGHT: 162.6 cm WEIGHT: 42.6 kg BP: 148/64 RVIDd: 2.2 cm (< 3.3) IVSd: 1.1 cm (0.6 - 1.1) LVIDd: 3.7 cm (3.9 - 5.3) LVPWd: 1.1 cm (0.6 - 1.1) IVSs: 1.2 cm LVIDs: 2.4 cm LVPWs: 1.6 cm LA Diam: 2.4 cm (2.7 - 3.8) LAESV Index (A-L): 11.21 ml/m Ao Diam: 2.7 cm (2.0 - 3.7) AV Cusp: 1.3 cm (1.5 - 2.6) MV EXCURSION: 17.896 mm (> 18.000) MV EF SLOPE: 129 mm/s (70 - 150) EPSS: 0.5 cm MV E Hari: 1.20 m/s MV DecT: 143 ms MV A Hari: 0.90 m/s MV E/A Ratio: 1.34 RAP: 5.00 mmHg RVSP: 49.32 mmHg FINDINGS -------- Sinus rhythm. This was a technically good study. The left ventricular size is normal. There is borderline concentric left ventricular hypertrophy. Overall left ventricular systolic function is normal with, an EF between 60 - 65 %. The right ventricle is normal in size and function. Normal LA size by volume 22+/-6 ml/m2. The right atrium is normal in size. There is mild aortic valve sclerosis. Trace amount of aortic regurgitation. The mitral valve leaflets are mildly thickened. Mild mitral annular calcification present. Mild mitral regurgitation is present. Moderate tricuspid regurgitation present. There is moderate pulmonary hypertension. The right ventricular systolic pressure, as measured by Doppler, is 49.32mmHg. The pulmonic valve is normal. The aortic root size is normal. Normal inferior vena cava with normal inspiratory collapse consistent with estimated right atrial pressure of 5 mmHg. There is no pericardial effusion. CONCLUSIONS -------- 1. Sinus rhythm. 2. Trace amount of aortic regurgitation. 3. The mitral valve leaflets are mildly thickened. 4. Mild mitral annular calcification present. 5. Mild mitral regurgitation is present. 6. Moderate tricuspid regurgitation present. 7. There is moderate pulmonary hypertension. 8. The right ventricular systolic pressure, as measured by Doppler, is 49.32mmHg. 9. The pulmonic valve is normal. 10. The aortic root size is normal. 11. Normal inferior vena cava with normal inspiratory collapse consistent with estimated right atrial pressure of 5 mmHg. 12. This was a technically good study. 13. There is no pericardial effusion. 14. The left ventricular size is normal. 15. There is borderline concentric left ventricular hypertrophy. 16. Overall left ventricular systolic function is normal with, an EF between 60 - 65 %. 17. The right ventricle is normal in size and function. 18. Normal LA size by volume 22+/-6 ml/m2. 19. The right atrium is normal in size. 20. There is mild aortic valve sclerosis. DRAFTER [employer]SCAPE: Maya Barragan RDCS
[2016-09-19] MEDS ORDERED: ALPRAZolam 0.25 MG TAB PO PRN (12:18)
--- NOTE | 2016-09-19 12:42 | P.CON ---
Consult Note - . Consult date: 09/19/16 Assessment/Plan:: Vascular surgery consult: Reason for consult: Carotid stenosis History of chief complaint: This 86-year-old woman had an episode of lightheadedness and generalized weakness. She specifically today denies any unilateral weakness. She did have some generalized upper extremity numbness. Her symptoms have resolved. She still has some occasional lightheadedness and generalized weakness. The patient does have some left facial weakness. This is a long-term chronic finding. Patient had significant hypertension during her initial evaluation. Please refer to the hospitalist note for the full review of systems. We agree with these findings and have reviewed in detail. Physical examination: Pleasant alert oriented 86-year-old woman, in no distress. She has some visible left facial weakness. HEENT: No obvious bruits or masses. Heart: Normal sinus rhythm Lungs: Clear to auscultation Findings: Carotid duplex shows no internal carotid stenosis greater than 50%. An external carotid stenosis is of no clinical significance. CT angiogram of the chest shows no significant relevant findings Impression: Nonspecific neurologic findings of uncertain origin. Mild carotid stenosis with no specific symptoms that correlate.: Recommendation: Would continue with aggressive medical management of hypertension and other medical comorbidities. Continue antiplatelet therapy with 81 mg aspirin daily. I discussed these findings and recommendations with the patient and her daughter. I would be happy to follow up with her in 2-4 weeks.
[2016-09-19 15:48] VITALS: RESP 18
--- NOTE | 2016-09-19 16:08 | P.PN ---
Subjective This is a pleasant 86-year-old female who gives an excellent history. 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 Overall the patient is quite physically active. Patient presented to the emergency room yesterday, the initial reason she went to the emergency room was because of some symptoms suggestive of a possible CVA. According to the patient , she was at home, felt some numbness and weakness in her left arm and in the left side of her face, she states then that she was unable to get the words out that she was trying to say, she went into the kitchen attempting to take something out of a drawer and was unsure on how to do that. She became quite concerned, pushed the button on her phone to call her sister, was able to communicate enough to let the sister know what was happening, her sister called EMS and patient was brought to the emergency room. EMS note from that admission aren't available. However the blood pressure a documented on arrival was 216/107. According to the patient, they gave her something for a blood pressure, performed a CT of the brain which did not reveal any acute changes and the patient was discharged home. On arrival home, her daughter was helping her into the house, she became extremely weak so her daughter sat her down on the step outside at which time the patient passed out. EMS was called again and this occasion, blood pressure on their arrival 200/103 with a heart rate in the 70s, 99% on room air. Blood pressure on arrival here 172/78, heart rate in the 70s, 99% on room air. Shortly after arrival and orthostatic set of blood pressures were obtained, blood pressure 178/80 lying, 156/70 sitting, 100/60 standing. Orthostatic blood pressures obtained at 3 PM this afternoon, 180/80 lying, 168/80 sitting, 150/90 standing. Overall the patient feels well. Echocardiogram with Doppler study was performed which revealed an ejection fraction of 60-65%. Objective - Vital Signs Vital signs: Vital Signs Temp 97.2 F L 09/19/16 15:00 Pulse 87 09/19/16 15:00 Resp 18 09/19/16 15:00 BP 180/89 09/19/16 15:00 Pulse Ox 97 09/19/16 15:00 Intake & Output 09/18/16 09/19/16 09/19/16 18:59 06:59 18:59 Intake Total 2160 150 480 Output Total 1250 300 Balance 910 -150 480 Weight 44.5 kg 42.9 kg Intake: IV 1200 Sodium Chloride 0.9% 1, 1200 000 ml @ 100 mls/hr IV . Q10H [facility] Rx#:[id number] Oral 960 150 480 Output: Urine 1250 300 Other: Voiding Method Toilet Toilet Bedside Commode Bedside Commode # Voids 1 1 1 - Exam PHYSICAL EXAMINATION: HEENT: Head is atraumatic, normocephalic. Pupils equal, round. Neck is supple. There is no elevated jugular venous pressure. HEART EXAMINATION: S1 and S2 systolic murmur is heard. CHEST EXAMINATION: Lungs are clear to auscultation and precussion. No chest wall tenderness is noted on palpation or with deep breathing. ABDOMEN: Soft, nontender. Bowel sounds are heard. No organomegaly noted. EXTREMITIES: 2+ peripheral pulses with no evidence of peripheral edema and no calf tenderness noted. NEUROLOGIC patient is awake, alert and oriented -3. . - Labs CBC & Chem 7: 09/19/16 06:01 09/19/16 06:01 Labs: Abnormal Lab Results - Last 24 Hours (Table) 09/19/16 09/19/16 Range/Units 06:01 06:01 RBC 3.64 L (3.80-5.40) m/uL Hgb 10.8 L (11.4-16.0) gm/dL Hct 33.0 L (34.0-46.0) % Chloride 113 H (98-107) mmol/L Assessment and Plan Plan: Assessment and plan #1 symptoms of left arm and facial weakness with associated expressive aphasia, suggestive of TIA #2 hypertensive urgency, blood pressure on arrival 220/110 #3 syncope, could be secondary to orthostatic hypotension, significant orthostasis noted here. 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 Melgar as an outpatient Plan Echocardiogram with Doppler study revealed normal left ventricular systolic function. We will keep the patient's current medications as they are, if we lower the blood pressure too much, then the patient will be significantly low on standing. Continue to monitor orthostatics, continue BISHOP hose, encouraged salt intake. DNP note has been reviewed, I agree with a documented findings and plan of care. Patient was seen and examined.
[2016-09-19] MEDS: FLUDROCORTISONE 0.1 MG TAB PO SCH (16:18)
[2016-09-19] MEDS ORDERED: hydrALAZINE HCL 20 MG/ML 1 ML VIAL IVP PRN (18:17)
[2016-09-19] MEDS ORDERED: cloNIDine HCL 0.1 MG TAB PO PRN (18:17)
--- NOTE | 2016-09-19 20:45 | P.PN ---
Subjective Principal diagnosis: syncope Patient is an 86-year-old female being followed by neurology for syncopal spell at home. Patient was seen in the ED for altered mental status and found to have elevated blood pressure. She was treated and discharged. At home she had a syncopal episode, EMS was called and transported the patient back to the emergency room. No seizure-like activity was described witnessed or noted. She was seen a second time in the ED. Her blood pressure was slightly elevated at 172/79. Patient did not have any chest palpitations or significant lightheadedness prior to the syncope. CT angiogram of the chest was done which showed no evidence of any pulmonary embolism. Her d-dimer was slightly elevated at 0.85. Her carotid Doppler showed approximately 50% stenosis involving the bilateral internal carotid artery. CBC, CMP, fasting lipid panel and cardiac enzymes were normal at that time. On contact today, the patient was supine resting in bed and in no acute distress. Objective - Vital Signs Vital signs: Vital Signs Temp 97.2 F L 09/19/16 15:00 Pulse 87 09/19/16 15:00 Resp 18 09/19/16 15:00 BP 180/89 09/19/16 15:00 Pulse Ox 97 09/19/16 15:00 Intake & Output 09/19/16 09/19/16 09/20/16 06:59 18:59 06:59 Intake Total 150 580 Output Total 300 450 Balance -150 130 Weight 42.9 kg Intake: Oral 150 580 Output: Urine 300 450 Other: Voiding Method Toilet Toilet Bedside Commode Bedside Commode # Voids 1 1 # Bowel Movements 1 - Exam Constitutional: AOx3, cooperative HEENT: NC/AT, no facial asymmetry is seen. Neck: Supple, no masses Respiratory: No increased work of breathing Cardiac: Regular rate and Rhythm GI: non tender, non distended Musculoskeletal: Asphalt Roller Operator strengths are equal bilaterally 5/5, Lower extremity strengths are equal bilaterally at 5/5. Neurological: CN II-XII in tact, patient was AOx3, speech and language are normal, no unilateralizing weakness, no seizure activity note on physical exam. Sensation was diminished in anna distal bilateral lower extremities Integementary: no rash, no erythema Psychiatric: mood and affect appropriate - Constitutional Constitutional Comment(s): Review of systems: all systems not noted in HPI above are considered negative. - Labs CBC & Chem 7: 09/19/16 06:01 09/19/16 06:01 Labs: Abnormal Lab Results - Last 24 Hours (Table) 09/19/16 09/19/16 Range/Units 06:01 06:01 RBC 3.64 L (3.80-5.40) m/uL Hgb 10.8 L (11.4-16.0) gm/dL Hct 33.0 L (34.0-46.0) % Chloride 113 H (98-107) mmol/L Assessment and Plan (1) Syncope Status: Acute (2) Sensory deficit, bilateral Status: Acute (3) Hypertension Status: Acute Plan: Patient did have multiple syncopal episodes with no seizure-like activity described. Patient has history of uncontrolled hypertension recently which was treated in the emergency room as mentioned above. Patient likely had episode of hypotension. Cardiology is actively involved and has consulted. EEG is still pending. Lower extremity sensory deficits bilaterally can be discussed further outpatient during her follow-up office visit. Further outpatient workup and diagnostic testing is warranted. Continue neuro checks at this time. Status: Patient can be cleared for discharge from a neurological standpoint if her EEG results are normal. If discharged, patient is to follow-up in our office within 10-14 days. I discussed the patient's pertinent medical information with Dr. Adkins. He agrees with the plan of care as implemented.
[2016-09-19] MEDS: LOSARTAN 25 MG TAB PO SCH (21:00)
[2016-09-20 00:33] VITALS: TEMP 96.8
[2016-09-20 06:33] LABS: Basophils % (A) 1 %; CH 28.7; CHCM 31.8; Eosinophils # (A) 0.2 k/uL (0-0.7); Eosinophils % (A) 2 %; HCT 35.8 % (34.0-46.0); HDW 2.62; HGB 11.7 gm/dL (11.4-16.0); Luc # (Auto) 0.11; Luc % (Auto) 2; Lymphocytes # (A) 2.1 k/uL (1.0-4.8); Lymphocytes % (A) 29 %; MCH 29.6 pg (25.0-35.0); MCHC 32.5 g/dL (31.0-37.0); MCV 90.8 fL (80.0-100.0); Mean Platelet Volume 6.5; Monocytes # (A) 0.4 k/uL (0-1.0); Monocytes % (A) 5 %; Neutrophils # (A) 4.4 k/uL (1.3-7.7); Neutrophils % (A) 62 %; RBC 3.95 m/uL (3.80-5.40); RDW 14.9 % (11.5-15.5); WBC 7.1 k/uL (3.8-10.6); WBC (Perox) 7.04
[2016-09-20 06:42] VITALS: PULSE 86
[2016-09-20] MEDS: PANTOPRAZOLE 40 MG TABLET PO SCH (06:44)
[2016-09-20 06:45] LABS: Anion Gap 6 mmol/L; Blood Urea Nitrogen 10 mg/dL (7-17); Carbon Dioxide 26 mmol/L (22-30); Chloride 111 mmol/L (98-107); Glucose 92 mg/dL (74-99); Non-African American GFR(MDRD) >60 (>60 ml/min/1.73 sqM); Potassium 3.7 mmol/L (3.5-5.1); Sodium 143 mmol/L (137-145)
--- NOTE | 2016-09-20 07:09 | PN ---
DATE OF SERVICE: 09/19/2016 This 86-year-old woman who was admitted with weakness and syncope also had orthostatic hypotension. The patient also had hypertensive urgency also. Cardiology is following the patient as well as Neurology. A 2-D echo with Doppler showed ejection fraction about 60% to 65% and no pericardial effusion, mild valvular abnormalities are noted. The patient was closely monitored. Patient complains of some dizziness also. Dr. Adkins has seen the patient and patient also had a carotid stenosis which was also evaluated by Dr. Law vascular surgeon as well. The carotid stenosis was found to be mild in nature by Dr. Law. PAST MEDICAL HISTORY: Reviewed. REVIEW OF SYSTEMS: CARDIOVASCULAR: No angina. RESPIRATORY: As mentioned earlier. GI: As mentioned earlier. : No dysuria. NERVOUS SYSTEM: As mentioned earlier. Current medications are reviewed and include: 1. Xanax 0.25 t.i.d. 2. Aspirin 81 mg. 3. Lipitor 10 mg. 4. Vitamin D3, 2000 daily. 5. Colace 100 mg. 6. Lodine 200 mg b.i.d. 7. Florinef 0.1 daily. 8. Folic acid 1 mg daily. 9. Heparin 10. Claritin 10 mg daily. 11. Cozaar 25 mg p.o. daily. 12. Multivitamins 1 p.o. daily. 13. Nitrostat. 14. Protonix. 15. Vitamin B1. PHYSICAL EXAMINATION: The patient is alert and oriented x3. The pulse is 87, blood pressure 180/89 respirations 18, temperature 97.2, pulse ox 97% on room air. HEENT: Conjunctivae normal. NECK: No jugular venous distention. CARDIOVASCULAR: S1 and S2, muffled. RESPIRATORY: Breath sounds diminished at the bases. No rhonchi, no crackles. ABDOMEN: Soft, nontender. No mass palpable. LEGS: No edema, no swelling. NERVOUS SYSTEM: No focal deficits. Labs at this time show WBC 8.2, hemoglobin 10.8. Lipids are noted. ASSESSMENT: 1. Syncope, possibly orthostatic hypotension. 2. Hypertensive urgency. 3. Weakness of the left side and change in mental status, possible acute transient ischemic attack. 4. Possible acute metabolic encephalopathy, multifactorial. 5. History of hypertension, essential. 6. Hyperlipidemia. 7. Gait dysfunction. 8. History of right-sided mastectomy. 9. Remote history of nicotine dependence. 10. Increased chloride. 11. Stenosis 50% of both internal carotid arteries and 58% to 70% stenosis in the left external carotid artery indicating mild carotid artery disease. 12. FULL CODE. RECOMMENDATIONS AND DISCUSSION: This 86-year-old woman who presented with multiple complex medical issues, we will monitor the patient closely. Continue the current medications. Continue symptomatic treatment. I recommend add Florinef to the current regimen. Monitor blood pressure closely. Continue with antiplatelet agents. Closely follow with Dr. Adkins and as well as Cardiology. Prognosis guarded. Further recommendations to follow. See orders for further details. MTDD
[2016-09-20] MEDS: DOCUSATE 100 MG CAP PO SCH (09:01)
[2016-09-20] MEDS: HEPARIN SODIUM,PORCINE 5,000 UNIT/ML 1 ML VIAL SQ SCH (09:01)
[2016-09-20] MEDS: LOSARTAN 25 MG TAB PO SCH (09:01)
[2016-09-20] MEDS: ATORVASTATIN 10 MG TAB PO SCH (09:01)
[2016-09-20] MEDS: ASPIRIN 81 MG CHEW PO SCH (09:01)
[2016-09-20] MEDS: FLUDROCORTISONE 0.1 MG TAB PO SCH (09:01)
[2016-09-20] MEDS: CHOLECALCIFEROL 1,000 UNIT TAB PO SCH (09:01)
[2016-09-20] MEDS: SODIUM CHLORIDE 0.9% 1,000 ML IV SCH (09:06)
[2016-09-20] MEDS ORDERED: amLODIPine 5 MG TAB PO SCH (11:00)
[2016-09-20] MEDS: THIAMINE 100 MG TAB PO SCH (11:19)
[2016-09-20] MEDS: MULTIVITAMINS, THERA 1 EACH TAB PO SCH (11:19)
[2016-09-20] MEDS: FOLIC ACID 1 MG TAB PO SCH (11:19)
[2016-09-20 14:13] VITALS: BP 156/87
--- NOTE | 2016-09-20 16:36 | P.PN ---
Subjective The pleasant 86 year old female who is a history of hypertension, hyperlipidemia, balance problems and a tumor on her spine for which she has had for quite some time. Overall she is quite physically active. Patient presented to the emergency department because of some symptoms suggestive of a possible CVA. Cranial the patient, she was at home, felt some numbness and weakness in her left arm and left side of her face. She states that he was unable to get the words out that she was trying to say, she went into the kitchen attempting to take something out of a drawer and was unsure how to do that. She became quite concerned push the button christin phone and called her sister and was able to communicate enough to let her sister no oral was happening. She is brought to the emergency department via EMS. Blood pressure on arrival is documented at 216/107. According to the patient, they gave her something for blood pressure, performed a CT of the brain which did not reveal any acute changes and the patient was discharged home. On arrival home her daughter was helping her into the house, she became extremely weak so her daughter sat her down on the step outside at which time the patient passed out. EMS was called again and blood pressure on arrival this admission was 200/103 with a heart rate in the 70s. Shortly after arrival orthostatic blood pressures were obtained and was found to be 178/80 lying, 156/70 sitting and 100 /60 standing. She did go undergo 2-D echo that showed ejection fraction of 60- 65%. She is currently on losartan 25 mg by mouth twice a day, Norvasc 5 mg by mouth daily and Florinef 0.1 mg by mouth daily. Objective - Vital Signs Vital signs: Vital Signs Temp 96.8 F L 09/19/16 23:00 Pulse 86 09/20/16 08:00 Resp 18 09/20/16 08:00 BP 156/87 09/20/16 12:00 Pulse Ox 94 L 09/20/16 06:41 Intake & Output 09/19/16 09/20/16 09/20/16 18:59 06:59 18:59 Intake Total 580 1200 850 Output Total 450 Balance 130 1200 850 Weight 42.4 kg Intake: IV 1200 500 Sodium Chloride 0.9% 1, 1200 500 000 ml @ 100 mls/hr IV . Q10H [facility] Rx#:[id number] Oral 580 350 Output: Urine 450 Other: Voiding Method Toilet Toilet Bedside Commode Bedside Commode # Voids 1 3 2 # Bowel Movements 1 0 - Exam PHYSICAL EXAMINATION: HEENT: Head is atraumatic, normocephalic. Pupils equal, round. Neck is supple. There is no elevated jugular venous pressure. HEART EXAMINATION: Heart sounds regular, S1 and S2 with a systolic murmur. CHEST EXAMINATION: Lungs are clear to auscultation and precussion. No chest wall tenderness is noted on palpation or with deep breathing. ABDOMEN: Soft, nontender. Bowel sounds are heard. No organomegaly noted. EXTREMITIES: 2+ peripheral pulses with no evidence of peripheral edema and no calf tenderness noted. NEUROLOGIC patient is awake, alert and oriented x3. . - Labs CBC & Chem 7: 09/20/16 06:15 09/20/16 06:15 Labs: Abnormal Lab Results - Last 24 Hours (Table) 09/20/16 Range/Units 06:15 Chloride 111 H (98-107) mmol/L Assessment and Plan Plan: #1 symptoms of left arm and facial weakness with associated expressive aphasia, suggestive of TIA #2 hypertensive urgency #3 syncope likely secondary to orthostatic hypotension #4 history of hypertension #5 hyperlipidemia From cardiology's standpoint, patient may be discharged home today. Medications are reviewed please continue the same. Patient will follow-up with Dr. Hinojosa in the office in about 10 days. UNDERCOLLAR BASTER note has been reviewed, I agree with a documented findings and plan of care. Patient was seen and examined.
--- NOTE | 2016-09-21 13:28 | DS ---
DATE OF ADMISSION: 09/17/2016 DATE OF DISCHARGE: 09/20/2016 FINAL DIAGNOSES: 1. Syncope, possible orthostatic hypotension. 2. Hypertensive urgency, present on admission. 3. Labile hypertension. 4. Weakness on left side and change in mental status, possible acute transient ischemic attack. 5. Possible acute metabolic encephalopathy, multifactorial. 6. History of hypertension, essential. 7. Hyperlipidemia. 8. Gait dysfunction. 9. History of right-sided mastectomy. 10. Remote history of nicotine dependence and increased chloride. 11. History of stenosis of 50% of both internal carotid arteries indicating mild carotid artery disease. 12. FULL CODE. DISCHARGE DISPOSITION: The patient will be discharged in a stable condition with guarded prognosis. HISTORY OF PRESENT ILLNESS: This is an 86-year-old woman with a past medical history of multiple medical problems was admitted with features of hypertensive urgency. Patient also had syncope. Patient also has hypertension. Patient was treated symptomatically, improved significantly. Cardiology saw the patient. On exam, vitals are stable. CARDIOVASCULAR SYSTEM: S1, S2, muffled. ABDOMEN: Soft. NERVOUS SYSTEM: No focal deficits. A 2-D echocardiogram with Doppler was done, which showed ejection fraction was 60% to 65%. The patient also had mild carotid artery disease which Dr. Law has seen and recommended outpatient followup. Otherwise, chest CTA was done, which showed no evidence of pulmonary embolism. Mild aneurysm of the ascending artery was noted. The patient will be discharged in a stable condition with guarded prognosis. 1. Diet is cardiac. 2. Activity limited until followup. 3. Follow up with Dr. Buchanan in 2 to 3 days. 4. Follow up with Dr. Adkins, Dr. Hinojosa and Dr. Law as advised. Medications will be: 1. Ecotrin 81 mg p.o. daily. 2. Lipitor 10 mg daily. 3. Zyrtec 10 mg daily. 4. Vitamin D3 two thousand daily. 5. Diclofenac 50 mg p.o. b.i.d. 6. Colace 100 mg daily. 7. Florinef 0.1 daily. 8. Folic acid 1 mg daily. 9. Cozaar 25 mg p.o. b.i.d. 10. Multivitamin 1 p.o. daily. 11. Omeprazole 40 mg b.i.d. 12. Thiamine 100 mg p.o. daily. 13. Norvasc 5 mg p.o. daily. 14. Coenzyme Q 100 mg p.o. daily. Once again, the patient will be discharged in a stable condition with guarded prognosis.
--- NOTE | 2016-10-09 09:22 | EEG ---
DATE OF SERVICE: 09/19/2016 INDICATIONS FOR EXAMINATION: Syncope. AGE: 86Y DESCRIPTION OF THE PROCEDURE: This EEG was performed using a 21-channel digital electroencephalograph, following the international 10 to 20 system. DESCRIPTION OF THE RECORDING: From the beginning of the tracing, and with the patient's eyes closed, the background rhythm was mostly consisting of 8 Hz alpha frequency in the posterior occipital leads. No obvious asymmetry is seen. Photic stimulation was performed with a minimal driving response seen. No pathological waves were elicited. Occasional muscle artifacts and movement artifacts are seen. Hyperventilation was not performed. The patient remains awake throughout the tracing. No epileptiform discharges were seen. Her EKG lead showed a regular rate and rhythm. INTERPRETATION: This awake EEG can be considered within normal limits. There was no asymmetry seen. No epileptiform discharges were noticed. The absence of epileptiform discharges does not rule out the diagnosis of epilepsy, therefore, clinical correlation is recommended.
== END 2016-09-20 17:50 | disposition home or self-care (01) | DRG 312 ==
LOC: EC 19:19 → 6SEL 20:02
PROVIDERS: ADMIT Hospitalist; ATTEND Hospitalist
DX: I95.1 Orthostatic hypotension (principal); G93.41 Metabolic encephalopathy; I71.2 Thoracic aortic aneurysm, without rupture; G45.9 Transient cerebral ischemic attack, unspecified; I65.29 Occlusion and stenosis of unspecified carotid artery; I16.0 Hypertensive urgency; I10 Essential (primary) hypertension; E78.5 Hyperlipidemia, unspecified; R26.9 Unspecified abnormalities of gait and mobility; R29.810 Facial weakness; K21.9 Gastro-esophageal reflux disease without esophagitis; R13.10 Dysphagia, unspecified; Z90.11 Acquired absence of right breast and nipple; Z87.891 Personal history of nicotine dependence; Z79.82 Long term (current) use of aspirin; Z79.899 Other long term (current) drug therapy
CPT/HCPCS: 36415; 70450; 71020; 71275; 80048; 80053; 80061; 80306; 81003; 82140; 82550; 82553; 83735; 83880; 84100; 84484; 85025; 85379; 85610; 85730; 87086; 93005; 93306; 93880; 95819; 96361; 96374; 96375; 99285

== ENCOUNTER 2016-12-09 11:52 | Day surgery (SDC) | payer MEDICARE, BC ==
[2016-12-06 11:38] VITALS: BMI 15.4
[~2016-12-09 11:52] MED LIST: LACTATED RINGERS 1,000 ML IV SCH
[2016-12-09 12:56] VITALS: RESP 18; TEMP 97.5
[2016-12-09] MEDS ORDERED: LABETALOL 5 MG/ML VIAL MDV IVP ONE (13:05)
[2016-12-09 13:12] LABS: Glucose,Whole Blood 69 mg/dL (75-99)
[2016-12-09] MEDS ORDERED: PROPOFOL 10 MG/ML 20 ML VIAL IV ONE (13:57)
[2016-12-09] MEDS ORDERED: LIDOCAINE 1% INJ 10MG/ML (20 ML MDV) ONE (13:57)
[2016-12-09 14:24] LABS: Glucose,Whole Blood 102 mg/dL (75-99)
--- NOTE | 2016-12-09 14:34 | P.PCN ---
Date of Procedure: 12/09/16 Preoperative Diagnosis: Postoperative Diagnosis: Procedure(s) Performed: Procedure: Esophagogastroduodenoscopy. Preoperative diagnosis: Dysphagia and progressive weight loss. Postoperative diagnosis: Small sliding hiatal hernia but no obvious esophagitis or strictures or other pathology. Preparation sedation: Was provided by anesthesia. Brief clinical history: The patient is an 86-year-old female who I have evaluated in the office for dysphagia and has considered pre-esophageal component as the main issue. However, the patient continued to lose weight progressively and has been tasting food she ate the night before, which made us decided to perform an EGD, which she never previously had, to exclude with confidence intrinsic esophageal pathology as the cause of her symptoms. Procedure: With the patient on her left lateral decubitus position and after informed consent and adequate sedation, I passed the Olympus-GIF 160 video upper endoscope through the cricopharyngeus down the esophagus. The esophagus did not show any obvious erosions or ulcers there were no obvious strictures or Acosta's esophagus. GE junction was around 37 cm from the incisors and there was small sliding hiatal hernia. I observed some simultaneous and sustained contractions during close evaluation of her esophagus. The endoscope was then passed into the stomach which was insufflated with air and inspected in detail including the retroflex view in the cardia. No obvious abnormalities were seen. Pyloric channel, duodenal bulb, post bulbar area and descending duodenum appeared within normal limits. No biopsies or dilation was indicated. The patient tolerated the procedure well. Plan: I summarized the findings to the patient and her daughter. Will encourage nutritional supplementation orally. Contingency would be to use tube feeding for enteral nutritional support if she continues to have difficulty with her weight. I will discuss with you and keep you updated on her progress. Implants: Indications for Procedure: Operative Findings: Description of Procedure:
[2016-12-09 14:36] VITALS: BP 177/78; PULSE 74
== END 2016-12-09 15:20 | disposition home or self-care (01) ==
LOC: ORWHC2ENDO 11:52
DX: K44.9 Diaphragmatic hernia without obstruction or gangrene (principal); R13.10 Dysphagia, unspecified; R63.4 Abnormal weight loss; I10 Essential (primary) hypertension; E78.5 Hyperlipidemia, unspecified; Z86.73 Personal history of transient ischemic attack (TIA), and cerebral infarction without residual deficits; Z79.82 Long term (current) use of aspirin; Z79.899 Other long term (current) drug therapy; Z91.041 Radiographic dye allergy status
CPT/HCPCS: 43235; J2001; J2704

== ENCOUNTER → 2017-01-24 | Outpatient (CLI) | payer MEDICARE, BC ==
[2017-01-24 09:17] LABS: Basophils % (A) 0 %; CH 29.6; CHCM 32.4; Eosinophils # (A) 0.1 k/uL (0-0.7); Eosinophils % (A) 2 %; HDW 2.65; HGB 13.4 gm/dL (11.4-16.0); Luc # (Auto) 0.13; Luc % (Auto) 2; Lymphocytes # (A) 2.7 k/uL (1.0-4.8); Lymphocytes % (A) 41 %; MCH 28.6 pg (25.0-35.0); MCHC 31.2 g/dL (31.0-37.0); MCV 91.8 fL (80.0-100.0); Mean Platelet Volume 7.1; Monocytes # (A) 0.5 k/uL (0-1.0); Monocytes % (A) 7 %; Neutrophils # (A) 3.1 k/uL (1.3-7.7); Neutrophils % (A) 48 %; RBC 4.68 m/uL (3.80-5.40); RDW 14.4 % (11.5-15.5); WBC 6.5 k/uL (3.8-10.6); WBC (Perox) 6.89
[2017-01-24 09:32] LABS: ALT 28 U/L (9-52); AST 22 U/L (14-36); Alkaline Phosphatase 64 U/L (38-126); Anion Gap 11 mmol/L; Blood Urea Nitrogen 21 mg/dL (7-17); Calcium 9.9 mg/dL (8.4-10.2); Carbon Dioxide 29 mmol/L (22-30); Chloride 106 mmol/L (98-107); Cholesterol 157 mg/dL (<200); Glucose 89 mg/dL (74-99); HDL Cholesterol 61 mg/dL (40-60); Non-African American GFR(MDRD) >60 (>60 ml/min/1.73 sqM); Potassium 3.9 mmol/L (3.5-5.1); Sodium 146 mmol/L (137-145); Total Bilirubin 0.9 mg/dL (0.2-1.3); Total Protein 7.2 g/dL (6.3-8.2)
== END | disposition home or self-care (01) ==
LOC: LABWHC1 08:49
PROVIDERS: ATTEND Family Medicine
DX: E78.5 Hyperlipidemia, unspecified (principal); I10 Essential (primary) hypertension; M81.0 Age-related osteoporosis without current pathological fracture; R63.6 Underweight
CPT/HCPCS: 36415; 80053; 80061; 82306; 84443; 85025

== ENCOUNTER 2017-03-02 23:23 | Emergency (ER) | payer MEDICARE, BC ==
[2017-03-02 23:41] VITALS: TEMP 97.5
[2017-03-03 00:51] LABS: Basophils % (A) 0 %; CH 28.6; Eosinophils # (A) 0.1 k/uL (0-0.7); Eosinophils % (A) 1 %; HCT 44.4 % (34.0-46.0); HDW 2.59; HGB 14.5 gm/dL (11.4-16.0); Luc # (Auto) 0.18; Luc % (Auto) 2; Lymphocytes # (A) 2.4 k/uL (1.0-4.8); Lymphocytes % (A) 25 %; MCH 29.4 pg (25.0-35.0); MCHC 32.7 g/dL (31.0-37.0); MCV 89.9 fL (80.0-100.0); Mean Platelet Volume 6.6; Monocytes # (A) 0.5 k/uL (0-1.0); Monocytes % (A) 5 %; Neutrophils # (A) 6.3 k/uL (1.3-7.7); Neutrophils % (A) 66 %; RBC 4.94 m/uL (3.80-5.40); RDW 13.7 % (11.5-15.5); WBC 9.5 k/uL (3.8-10.6); WBC (Perox) 9.35
[2017-03-03 00:59] LABS: Appearance,Urine Clear (Clear); Bilirubin,Urine Negative (Negative); Glucose,Urine (UA) Negative (Negative); Ketones,Urine Negative (Negative); Leukocyte Esterase,Urine Negative (Negative); Nitrite,Urine Negative (Negative); Protein,Urine Negative (Negative); Specific Gravity,Urine 1.002 (1.001-1.035); UA Billing (MACRO vs. MICRO) CHEM; Urobilinogen,Urine <2.0 mg/dL (<2.0)
[2017-03-03 01:03] LABS: ALT 32 U/L (9-52); AST 27 U/L (14-36); Alkaline Phosphatase 89 U/L (38-126); Anion Gap 12 mmol/L; Blood Urea Nitrogen 21 mg/dL (7-17); Calcium 10.6 mg/dL (8.4-10.2); Carbon Dioxide 30 mmol/L (22-30); Chloride 103 mmol/L (98-107); Glucose 108 mg/dL (74-99); Non-African American GFR(MDRD) >60 (>60 ml/min/1.73 sqM); Potassium 4.2 mmol/L (3.5-5.1); Sodium 145 mmol/L (137-145); Total Bilirubin 0.9 mg/dL (0.2-1.3); Total Protein 8.2 g/dL (6.3-8.2)
[2017-03-03 01:15] LABS: Creatine Kinase 46 U/L (30-135)
[2017-03-03 01:17] LABS: Partial Thromboplastin Time 25.8 sec (22.0-30.0); Prothrombin Time 10.5 sec (9.0-12.0)
[2017-03-03 01:27] LABS: Creatine Kinase MB 1.6 ng/mL (0.0-2.4); Troponin I <0.012 ng/mL (0.000-0.034)
--- NOTE | 2017-03-03 01:28 | XR ---
EXAM: XR Chest, 2 Views CLINICAL HISTORY: Reason: Weakness TECHNIQUE: Frontal and lateral views of the chest. COMPARISON: Chest radiograph 09/17/2016 FINDINGS: Lungs: Lungs are hyperaerated. No acute pulmonary infiltrates or consolidations. Small nodular density projects to left lung base suggesting probable nipple shadow. Similar finding was evident on prior study 09/17/2016. Pleural space: No evidence of pneumothorax or pleural effusion. Heart: Heart size is within normal limits Mediastinum: Unremarkable. Bones/joints: Mild degenerative changes involve the mid to lower thoracic spine. Other findings: No significant change since 09/17/2016 IMPRESSION: Pulmonary hyperaeration. No evidence of acute cardiopulmonary disease. Probable nipple shadow projecting to the left lung base.
--- NOTE | 2017-03-03 01:35 | ED ---
General Adult HPI - General Chief complaint: Recheck/Abnormal Lab/Rx Stated complaint: Hypertension Time Seen by Provider: 03/02/17 23:53 Source: patient, family Mode of arrival: ambulatory Limitations: no limitations - History of Present Illness Initial comments: Is concerned about her fluctuating blood pressure, blood pressure tonight at 10 PM was 200 systolic and earlier was quite low, patient and patient's blood pressure has been fluctuating for quite some time no GI as well as Norvasc 2.5 mg dose to be used on an as-needed basis and per pressure gets. Eyes any end organ symptoms denies any confusion any headaches no blurred vision no chest pain or shortness of breath no abdominal pain no frequency urgency dysuria - Related Data Home Medications Medication Instructions Recorded Confirmed Aspirin EC [Ecotrin Low Dose] 81 mg PO DAILY 09/17/16 03/02/17 Atorvastatin [Lipitor] 10 mg PO DAILY 09/17/16 03/02/17 Cetirizine HCl [Zyrtec] 10 mg PO DAILY PRN 09/17/16 03/02/17 Cholecalciferol [Vitamin D3] 2,000 unit PO DAILY 09/17/16 03/02/17 Diclofenac Potassium [Cataflam] 50 mg PO BID PRN 09/17/16 03/02/17 Docusate [Colace] 100 - 200 mg PO DAILY 09/17/16 03/02/17 Omeprazole 20 mg PO AC-BRKFST 09/17/16 03/02/17 Ubidecarenone [Co Q-10] 100 mg PO DAILY 09/17/16 03/02/17 Fludrocortisone [Florinef] 0.1 mg PO QAM 12/06/16 03/02/17 Losartan [Cozaar] 50 mg PO QAM 12/06/16 03/02/17 Vitamin B Complex 1 each PO DAILY 12/06/16 03/02/17 amLODIPine BESYLATE [Norvasc] 5 mg PO HS PRN 12/06/16 03/02/17 amLODIPine [Norvasc] 2.5 mg PO QAM 12/06/16 03/02/17 Previous Rx's Medication Instructions Recorded Thiamine [Vitamin B-1] 100 mg PO DAILY@1200 #30 tab 09/19/16 Metoclopramide [Reglan] 5 mg PO ACHS #20 tab 03/03/17 Allergies Allergy/AdvReac Type Severity Reaction Status Date / Time Iodinated Contrast- Oral and AdvReac Nausea & Verified 03/02/17 23:41 IV Dye Vomiting [Iodinated Contrast Media - Oral and] Review of Systems ROS Statement: Those systems with pertinent positive or pertinent negative responses have been documented in the HPI. ROS Other: All systems not noted in ROS Statement are negative. Past Medical History Past Medical History: Cancer, Hyperlipidemia, Hypertension Additional Past Medical History / Comment(s): states "having trouble swallowing and food staying stuck in my throat and I can taste it", constipation,patient states she has "balance problems" and walks with a walker,hx breast CA 1979-no radiation or chemo,states "takes florinef to balance b/p(b/p going up to 200s then real low". )" History of Any Multi-Drug Resistant Organisms: None Reported Past Surgical History: Tonsillectomy Additional Past Surgical History / Comment(s): right side mastectomy Past Anesthesia/Blood Transfusion Reactions: No Reported Reaction Past Psychological History: No Psychological Hx Reported Smoking Status: Former smoker - Past Family History Mother Family Medical History: No Reported History Father Additional Family Medical History / Comment(s): aneurysm General Exam - General Exam Comments Initial Comments: General: The patient is awake and alert, in no distress, and does not appear acutely ill. GCS is 15 Skin: Skin is warm and dry and no rashes or lesions are noted. Eye: Pupils are equal, round and reactive to light, extra-ocular movements are intact; there is normal conjunctiva bilaterally. Ears, nose, mouth and throat: There are moist mucous membranes and no oral lesions. Neck: The neck is supple, there is no tenderness or JVD. Cardiovascular: There is a regular rate and rhythm. No murmur, rub or gallop is appreciated. Respiratory: To auscultation bilateral, no wheezing no rhonchi no distress respiratory noyola noticed Gastrointestinal: Soft, non-distended, non-tender abdomen without masses or organomegaly noted. There is no rebound or guarding present. Bowel sounds are unremarkable. Back: There is no tenderness to palpation in the midline. There is no obvious deformity. Musculoskeletal: Normal ROM, no tenderness, There is no pedal edema. There is no calf tenderness or swelling. No cords were appreciated. Neurological: CN II-XII intact, Cranial nerves III through XII are intact. There are no obvious motor or sensory deficits. Coordination appears grossly intact. Speech is normal. Psychiatric: Cooperative, appropriate mood & affect, normal judgment. Limitations: no limitations Course Vital Signs 03/02/17 23:37 Temperature 97.5 F L Pulse Rate 87 Respiratory 18 Rate Blood Pressure 162/85 O2 Sat by Pulse 100 Oximetry Patient was reassessed at 1:30 5 in the morning, CBC, compressive metabolic panel, urinalysis, troponin, EKG, chest x-ray are within normal limits EKG Findings - EKG Comments: EKG Findings:: EKG is to the medical rate is 74 pr interval is 142 qrs duration is 82 qt/qtc is 4/469 review of this ekg does not reveal any st elevation or st depression Medical Decision Making - Lab Data Result diagrams: 03/03/17 00:37 03/03/17 00:37 Lab Results 03/03/17 03/03/17 03/03/17 Range/Units 00:37 00:37 00:37 WBC 9.5 (3.8-10.6) k/uL RBC 4.94 (3.80-5.40) m/uL Hgb 14.5 (11.4-16.0) gm/dL Hct 44.4 (34.0-46.0) % MCV 89.9 (80.0-100.0) fL MCH 29.4 (25.0-35.0) pg MCHC 32.7 (31.0-37.0) g/dL RDW 13.7 (11.5-15.5) % Plt Count 282 (150-450) k/uL Neutrophils % 66 % Lymphocytes % 25 % Monocytes % 5 % Eosinophils % 1 % Basophils % 0 % Neutrophils # 6.3 (1.3-7.7) k/uL Lymphocytes # 2.4 (1.0-4.8) k/uL Monocytes # 0.5 (0-1.0) k/uL Eosinophils # 0.1 (0-0.7) k/uL Basophils # 0.0 (0-0.2) k/uL PT (9.0-12.0) sec INR (<1.2) APTT (22.0-30.0) sec Sodium 145 (137-145) mmol/L Potassium 4.2 (3.5-5.1) mmol/L Chloride 103 (98-107) mmol/L Carbon Dioxide 30 (22-30) mmol/L Anion Gap 12 mmol/L BUN 21 H (7-17) mg/dL Creatinine 0.80 (0.52-1.04) mg/dL Est GFR (MDRD) Af Amer >60 (>60 ml/min/1.73 sqM) Est GFR (MDRD) Non-Af >60 (>60 ml/min/1.73 sqM) Glucose 108 H (74-99) mg/dL Calcium 10.6 H (8.4-10.2) mg/dL Total Bilirubin 0.9 (0.2-1.3) mg/dL AST 27 (14-36) U/L ALT 32 (9-52) U/L Alkaline Phosphatase 89 (38-126) U/L Total Creatine Kinase 46 (30-135) U/L CK-MB (CK-2) 1.6 (0.0-2.4) ng/mL CK-MB (CK-2) Rel Index 3.5 Troponin I <0.012 (0.000-0.034) ng/mL Total Protein 8.2 (6.3-8.2) g/dL Albumin 4.8 (3.5-5.0) g/dL Urine Color Urine Appearance (Clear) Urine pH (5.0-8.0) Ur Specific [place] (1.001-1.035) Urine Protein (Negative) Urine Glucose (UA) (Negative) Urine Ketones (Negative) Urine Blood (Negative) Urine Nitrite (Negative) Urine Bilirubin (Negative) Urine Urobilinogen (<2.0) mg/dL Ur Leukocyte Esterase (Negative) 03/03/17 03/03/17 Range/Units 00:37 00:37 WBC (3.8-10.6) k/uL RBC (3.80-5.40) m/uL Hgb (11.4-16.0) gm/dL Hct (34.0-46.0) % MCV (80.0-100.0) fL MCH (25.0-35.0) pg MCHC (31.0-37.0) g/dL RDW (11.5-15.5) % Plt Count (150-450) k/uL Neutrophils % % Lymphocytes % % Monocytes % % Eosinophils % % Basophils % % Neutrophils # (1.3-7.7) k/uL Lymphocytes # (1.0-4.8) k/uL Monocytes # (0-1.0) k/uL Eosinophils # (0-0.7) k/uL Basophils # (0-0.2) k/uL PT 10.5 (9.0-12.0) sec INR 1.0 (<1.2) APTT 25.8 (22.0-30.0) sec Sodium (137-145) mmol/L Potassium (3.5-5.1) mmol/L Chloride (98-107) mmol/L Carbon Dioxide (22-30) mmol/L Anion Gap mmol/L BUN (7-17) mg/dL Creatinine (0.52-1.04) mg/dL Est GFR (MDRD) Af Amer (>60 ml/min/1.73 sqM) Est GFR (MDRD) Non-Af (>60 ml/min/1.73 sqM) Glucose (74-99) mg/dL Calcium (8.4-10.2) mg/dL Total Bilirubin (0.2-1.3) mg/dL AST (14-36) U/L ALT (9-52) U/L Alkaline Phosphatase (38-126) U/L Total Creatine Kinase (30-135) U/L CK-MB (CK-2) (0.0-2.4) ng/mL CK-MB (CK-2) Rel Index Troponin I (0.000-0.034) ng/mL Total Protein (6.3-8.2) g/dL Albumin (3.5-5.0) g/dL Urine Color Colorless Urine Appearance Clear (Clear) Urine pH 7.0 (5.0-8.0) Ur Specific [place] 1.002 (1.001-1.035) Urine Protein Negative (Negative) Urine Glucose (UA) Negative (Negative) Urine Ketones Negative (Negative) Urine Blood Negative (Negative) Urine Nitrite Negative (Negative) Urine Bilirubin Negative (Negative) Urine Urobilinogen <2.0 (<2.0) mg/dL Ur Leukocyte Esterase Negative (Negative) Disposition Clinical Impression: Hypertension, Nausea Disposition: HOME SELF-CARE Condition: Good Instructions: Chronic Hypertension (ED) Prescriptions: Metoclopramide [Reglan] 5 mg PO ACHS #20 tab Referrals: Belkis Buchanan MD [Primary Care Provider] - 1-2 days
[2017-03-03 02:15] VITALS: BP 187/95; PULSE 62; RESP 16
== END 2017-03-03 02:15 | disposition home or self-care (01) ==
LOC: EC 23:23
DX: I10 Essential (primary) hypertension (principal); R11.0 Nausea; R40.2412 Glasgow coma scale score 13-15, at arrival to emergency department; E78.5 Hyperlipidemia, unspecified; Z87.891 Personal history of nicotine dependence; Z79.52 Long term (current) use of systemic steroids; Z79.82 Long term (current) use of aspirin; Z79.899 Other long term (current) drug therapy; Z91.041 Radiographic dye allergy status; Z85.3 Personal history of malignant neoplasm of breast; Z90.11 Acquired absence of right breast and nipple
CPT/HCPCS: 36415; 71020; 80053; 81003; 82550; 82553; 84484; 85025; 85610; 85730; 93005; 99284

== ENCOUNTER 2017-03-25 19:50 | Emergency (ER) | payer MEDICARE, BC ==
[2017-03-25] MEDS ORDERED: hydrALAZINE HCL 20 MG/ML 1 ML VIAL IVP STA (20:26)
--- NOTE | 2017-03-25 20:30 | ED ---
General Adult HPI - General Source: patient, family, RN notes reviewed Mode of arrival: wheelchair Limitations: no limitations <Jesse Lester - Last Filed: 03/25/17 20:35> <Kalen Hansen - Last Filed: 03/25/17 22:10> - General Chief complaint: Recheck/Abnormal Lab/Rx Stated complaint: Blood Pressure Time Seen by Provider: 03/25/17 20:00 - History of Present Illness Initial comments: This is an 86-year-old female presents emergency Department complaining of her blood pressure being high. Patient states she has no symptoms whatsoever but she takes her blood pressure every day in the morning and at night patient states tonight when she took it was elevated so she came to the emergency department. Patient states she has no chest pain no palpitations no difficulty breathing Emanuel of breath. Daughter states that earlier today the mother complained of a little lightheadedness. Patient currently does not complain of any lightheadedness or dizziness. Patient denies any headache patient denies blurred vision patient denies any numbness weakness. Patient denies any near- syncopal episode. Patient denies any abdominal pain patient denies nausea vomiting diarrhea. (Jesse Lester) - Related Data Home Medications Medication Instructions Recorded Confirmed Aspirin EC [Ecotrin Low Dose] 81 mg PO DAILY 09/17/16 03/25/17 Atorvastatin [Lipitor] 10 mg PO DIRECTED 09/17/16 03/25/17 Cetirizine HCl [Zyrtec] 10 mg PO DAILY PRN 09/17/16 03/25/17 Cholecalciferol [Vitamin D3] 2,000 unit PO DAILY 09/17/16 03/25/17 Diclofenac Potassium [Cataflam] 50 mg PO BID PRN 09/17/16 03/25/17 Docusate [Colace] 100 - 200 mg PO DAILY 09/17/16 03/25/17 Omeprazole 20 mg PO AC-BRKFST 09/17/16 03/25/17 Ubidecarenone [Co Q-10] 100 mg PO DAILY 09/17/16 03/25/17 Fludrocortisone [Florinef] 0.1 mg PO DAILY 12/06/16 03/25/17 Losartan [Cozaar] 50 mg PO HS 12/06/16 03/25/17 Vitamin B Complex 1 cap PO DAILY 12/06/16 03/25/17 amLODIPine BESYLATE [Norvasc] 5 mg PO HS PRN 12/06/16 03/25/17 amLODIPine [Norvasc] 2.5 mg PO DAILY 12/06/16 03/25/17 Allergies Allergy/AdvReac Type Severity Reaction Status Date / Time alendronate sodium AdvReac Migraines Verified 03/25/17 20:31 [From Fosamax] Iodinated Contrast- Oral and AdvReac Nausea & Verified 03/25/17 20:31 IV Dye Vomiting [Iodinated Contrast Media - Oral and] Review of Systems ROS Other: All systems not noted in ROS Statement are negative. <Jesse Lester - Last Filed: 03/25/17 20:35> ROS Other: All systems not noted in ROS Statement are negative. <Kalen Hansen - Last Filed: 03/25/17 22:10> ROS Statement: Those systems with pertinent positive or pertinent negative responses have been documented in the HPI. Past Medical History Past Medical History: Cancer, Hyperlipidemia, Hypertension Additional Past Medical History / Comment(s): states "having trouble swallowing and food staying stuck in my throat and I can taste it", constipation,patient states she has "balance problems" and walks with a walker,hx breast CA 1979-no radiation or chemo,states "takes florinef to balance b/p(b/p going up to 200s then real low". )" History of Any Multi-Drug Resistant Organisms: None Reported Past Surgical History: Tonsillectomy Additional Past Surgical History / Comment(s): right side mastectomy Past Anesthesia/Blood Transfusion Reactions: No Reported Reaction Past Psychological History: No Psychological Hx Reported Smoking Status: Former smoker - Past Family History Mother Family Medical History: No Reported History Father Additional Family Medical History / Comment(s): aneurysm <Jesse Lester - Last Filed: 03/25/17 20:35> General Exam Limitations: no limitations <Jesse Lester - Last Filed: 03/25/17 20:35> <Kalen Hansen - Last Filed: 03/25/17 22:10> - General Exam Comments Initial Comments: GENERAL: Patient is well-developed and well-nourished. Patient is nontoxic and well- hydrated and is in no acute distress. ENT: Neck is soft and supple. No significant lymphadenopathy is noted. Oropharynx is clear. Moist mucous membranes. Neck has full range of motion without eliciting any pain. EYES: The sclera were anicteric and conjunctiva were pink and moist. Extraocular movements were intact and pupils were equal round and reactive to light. Eyelids were unremarkable. PULMONARY: Unlabored respirations. Good breath sounds bilaterally. No audible rales rhonchi or wheezing was noted. CARDIOVASCULAR: There is a regular rate and rhythm without any murmurs gallops or rubs. ABDOMEN: Soft and nontender with normal bowel sounds. No palpable organomegaly was noted. There is no palpable pulsatile mass. SKIN: Skin is clear with no lesions or rashes and otherwise unremarkable. NEUROLOGIC: Patient is alert and oriented x3. Cranial nerves II through XII are grossly intact. Motor and sensory are also intact. Normal speech, volume and content. Symmetrical smile. MUSCULOSKELETAL: Normal extremities with adequate strength and full range of motion. No lower extremity swelling or edema. No calf tenderness. LYMPHATICS: No significant lymphadenopathy is noted PSYCHIATRIC: Normal psychiatric evaluation. Normal interpersonal interactions appears functionally intact in deals appropriately with others. No signs of depression. No signs of anxiety. (Jesse Lester) Course <Jesse Lester - Last Filed: 03/25/17 20:35> <Kalen Hansen - Last Filed: 03/25/17 22:10> Vital Signs 03/25/17 03/25/17 03/25/17 19:55 20:30 20:31 Temperature 96.9 F L Pulse Rate 94 88 87 Respiratory 16 18 18 Rate Blood Pressure 212/100 224/111 192/96 O2 Sat by Pulse 100 100 Oximetry 03/25/17 03/25/17 03/25/17 20:43 21:12 21:42 Temperature Pulse Rate 92 93 91 Respiratory 18 18 18 Rate Blood Pressure 145/76 129/66 132/73 O2 Sat by Pulse 100 100 100 Oximetry - Reevaluation(s) Reevaluation #1: 03/25/17 22:09 The patient was endorsed to me by Dr. Lester at our shift change pending lab work labs are within normal limits except this is BUN/creatinine do indicate evidence of Lyme depletion. I did discuss with the patient her blood pressure has normalized he'll be discharged to follow-up with her doctor. Her family member was present. (Kalen Hansen) Medical Decision Making <Jesse Lester - Last Filed: 03/25/17 20:35> - Lab Data Result diagrams: 03/25/17 20:12 03/25/17 20:12 - Radiology Data Radiology results: report reviewed (I did review the imaging and reports no acute findings.), image reviewed <Kalen Hansen - Last Filed: 03/25/17 22:10> - Medical Decision Making EKG shows sinus rhythm with occasional PAC at a rate of 93 bpm [place] interval is 182 QRS is 90 QT interval 394 QTC is 489 per patient's EKG shows no ST segment elevation or depression or T wave abnormalities are noted. Dr. Sheikh will be taking over the care of this patient at 9 PM (Jesse Lester ) - Lab Data Lab Results 03/25/17 03/25/17 03/25/17 Range/Units 20:12 20:12 20:12 WBC 7.3 (3.8-10.6) k/uL RBC 5.02 (3.80-5.40) m/uL Hgb 14.2 (11.4-16.0) gm/dL Hct 45.2 (34.0-46.0) % MCV 89.9 (80.0-100.0) fL MCH 28.2 (25.0-35.0) pg MCHC 31.4 (31.0-37.0) g/dL RDW 13.5 (11.5-15.5) % Plt Count 296 (150-450) k/uL Neutrophils % 54 % Lymphocytes % 36 % Monocytes % 6 % Eosinophils % 2 % Basophils % 1 % Neutrophils # 3.9 (1.3-7.7) k/uL Lymphocytes # 2.6 (1.0-4.8) k/uL Monocytes # 0.4 (0-1.0) k/uL Eosinophils # 0.1 (0-0.7) k/uL Basophils # 0.0 (0-0.2) k/uL PT (9.0-12.0) sec INR (<1.2) APTT (22.0-30.0) sec Sodium 145 (137-145) mmol/L Potassium 4.3 (3.5-5.1) mmol/L Chloride 103 (98-107) mmol/L Carbon Dioxide 27 (22-30) mmol/L Anion Gap 15 mmol/L BUN 22 H (7-17) mg/dL Creatinine 0.68 (0.52-1.04) mg/dL Est GFR (MDRD) Af Amer >60 (>60 ml/min/1.73 sqM) Est GFR (MDRD) Non-Af >60 (>60 ml/min/1.73 sqM) Glucose 105 H (74-99) mg/dL Calcium 10.6 H (8.4-10.2) mg/dL Magnesium 1.9 (1.6-2.3) mg/dL Total Bilirubin 0.8 (0.2-1.3) mg/dL AST 28 (14-36) U/L ALT 32 (9-52) U/L Alkaline Phosphatase 94 (38-126) U/L Total Creatine Kinase 43 (30-135) U/L CK-MB (CK-2) 1.3 (0.0-2.4) ng/mL CK-MB (CK-2) Rel Index 3.0 Troponin I <0.012 (0.000-0.034) ng/mL Total Protein 8.8 H (6.3-8.2) g/dL Albumin 5.2 H (3.5-5.0) g/dL 03/25/17 Range/Units 20:12 WBC (3.8-10.6) k/uL RBC (3.80-5.40) m/uL Hgb (11.4-16.0) gm/dL Hct (34.0-46.0) % MCV (80.0-100.0) fL MCH (25.0-35.0) pg MCHC (31.0-37.0) g/dL RDW (11.5-15.5) % Plt Count (150-450) k/uL Neutrophils % % Lymphocytes % % Monocytes % % Eosinophils % % Basophils % % Neutrophils # (1.3-7.7) k/uL Lymphocytes # (1.0-4.8) k/uL Monocytes # (0-1.0) k/uL Eosinophils # (0-0.7) k/uL Basophils # (0-0.2) k/uL PT 10.1 (9.0-12.0) sec INR 1.0 (<1.2) APTT 25.1 (22.0-30.0) sec Sodium (137-145) mmol/L Potassium (3.5-5.1) mmol/L Chloride (98-107) mmol/L Carbon Dioxide (22-30) mmol/L Anion Gap mmol/L BUN (7-17) mg/dL Creatinine (0.52-1.04) mg/dL Est GFR (MDRD) Af Amer (>60 ml/min/1.73 sqM) Est GFR (MDRD) Non-Af (>60 ml/min/1.73 sqM) Glucose (74-99) mg/dL Calcium (8.4-10.2) mg/dL Magnesium (1.6-2.3) mg/dL Total Bilirubin (0.2-1.3) mg/dL AST (14-36) U/L ALT (9-52) U/L Alkaline Phosphatase (38-126) U/L Total Creatine Kinase (30-135) U/L CK-MB (CK-2) (0.0-2.4) ng/mL CK-MB (CK-2) Rel Index Troponin I (0.000-0.034) ng/mL Total Protein (6.3-8.2) g/dL Albumin (3.5-5.0) g/dL Disposition <Jesse Lester - Last Filed: 03/25/17 20:35> <Kalen Hansen - Last Filed: 03/25/17 22:10> Clinical Impression: Hypertension, Dehydration, Prerenal azotemia Disposition: HOME SELF-CARE Condition: Good Instructions: Hypertension (ED), Dehydration (ED) Referrals: Belkis Buchanan MD [Primary Care Provider] - 1-2 days
[2017-03-25 20:31] VITALS: RESP 18
[2017-03-25 20:47] LABS: Basophils % (A) 1 %; CH 28.8; CHCM 32.2; Eosinophils # (A) 0.1 k/uL (0-0.7); Eosinophils % (A) 2 %; HCT 45.2 % (34.0-46.0); HDW 2.67; HGB 14.2 gm/dL (11.4-16.0); Luc # (Auto) 0.15; Luc % (Auto) 2; Lymphocytes # (A) 2.6 k/uL (1.0-4.8); Lymphocytes % (A) 36 %; MCH 28.2 pg (25.0-35.0); MCHC 31.4 g/dL (31.0-37.0); MCV 89.9 fL (80.0-100.0); Mean Platelet Volume 6.3; Monocytes # (A) 0.4 k/uL (0-1.0); Monocytes % (A) 6 %; Neutrophils # (A) 3.9 k/uL (1.3-7.7); Neutrophils % (A) 54 %; RBC 5.02 m/uL (3.80-5.40); RDW 13.5 % (11.5-15.5); WBC 7.3 k/uL (3.8-10.6); WBC (Perox) 6.81
--- NOTE | 2017-03-25 20:50 | XR ---
EXAMINATION TYPE: XR chest 2V DATE OF EXAM: 03/25/2017 COMPARISON: 03/03/2017 HISTORY: High blood pressure. Chest pain. TECHNIQUE: Frontal and lateral views of the chest are obtained. FINDINGS: There is no heart failure nor confluent pneumonic infiltrate. Heart size is normal. Thorac ic aorta is atheromatous. There are chest leads. Bony thorax is intact. IMPRESSION: No active cardiopulmonary disease. No change.
[2017-03-25 20:55] LABS: Partial Thromboplastin Time 25.1 sec (22.0-30.0); Prothrombin Time 10.1 sec (9.0-12.0)
[2017-03-25 21:03] LABS: ALT 32 U/L (9-52); AST 28 U/L (14-36); Alkaline Phosphatase 94 U/L (38-126); Anion Gap 15 mmol/L; Blood Urea Nitrogen 22 mg/dL (7-17); Calcium 10.6 mg/dL (8.4-10.2); Carbon Dioxide 27 mmol/L (22-30); Chloride 103 mmol/L (98-107); Glucose 105 mg/dL (74-99); Magnesium 1.9 mg/dL (1.6-2.3); Non-African American GFR(MDRD) >60 (>60 ml/min/1.73 sqM); Potassium 4.3 mmol/L (3.5-5.1); Sodium 145 mmol/L (137-145); Total Bilirubin 0.8 mg/dL (0.2-1.3); Total Protein 8.8 g/dL (6.3-8.2)
[2017-03-25 21:07] LABS: Creatine Kinase 43 U/L (30-135)
[2017-03-25 21:19] LABS: Creatine Kinase MB 1.3 ng/mL (0.0-2.4); Troponin I <0.012 ng/mL (0.000-0.034)
[2017-03-25 22:21] VITALS: BP 122/75; PULSE 92; TEMP 97.3
== END 2017-03-25 22:21 | disposition home or self-care (01) ==
LOC: EC 19:50
DX: I10 Essential (primary) hypertension (principal); E86.0 Dehydration; R79.89 Other specified abnormal findings of blood chemistry; E78.5 Hyperlipidemia, unspecified; Z87.891 Personal history of nicotine dependence; Z79.52 Long term (current) use of systemic steroids; Z79.82 Long term (current) use of aspirin; Z79.899 Other long term (current) drug therapy; Z88.8 Allergy status to other drugs, medicaments and biological substances; Z91.041 Radiographic dye allergy status; Z85.3 Personal history of malignant neoplasm of breast; Z90.11 Acquired absence of right breast and nipple
CPT/HCPCS: 36415; 93005; 80053; 82550; 82553; 83735; 84484; 85025; 85610; 85730; 71020; 99284; 96374; J0360

== ENCOUNTER → 2017-04-19 | Outpatient (CLI) | payer MEDICARE, BC ==
[2017-04-19 10:54] LABS: Cholesterol 205 mg/dL (<200); HDL Cholesterol 62 mg/dL (40-60)
== END | disposition home or self-care (01) ==
LOC: LABWHC1 10:12
PROVIDERS: ATTEND Internal Medicine Endocrinology, Diabetes & Metabolism
DX: E88.1 Lipodystrophy, not elsewhere classified (principal)
CPT/HCPCS: 36415; 80061

== ENCOUNTER 2017-05-20 18:04 | Observation (INO) | payer MEDICARE, BC ==
[2017-05-20] MEDS ORDERED: SODIUM CHLORIDE 0.9% 1,000 ML IV STA ×2 (19:23→21:09)
[2017-05-20] MEDS ORDERED: SODIUM CHLORIDE 0.9% 500 ML IV STA (19:23)
--- NOTE | 2017-05-20 19:26 | ED ---
Nausea/Vomiting/Diarrhea HPI - General Source: patient, family, RN notes reviewed Mode of arrival: wheelchair Limitations: no limitations - History of Present Illness MD complaint: nausea, other <Kalen Hansen - Last Filed: 05/20/17 21:09> <Jesse Gregory - Last Filed: 05/20/17 22:51> - General Chief complaint: Nausea/Vomiting/Diarrhea Stated complaint: Dehydration Time Seen by Provider: 05/20/17 19:00 - History of Present Illness Initial comments: This 86-year-old female who is brought in for evaluation for dizziness nausea weakness some lip smacking and spitting up. She did decrease oral intake for the past 2-3 days persistent nausea and increased sleepiness of note she was a scopolamine patch for about 5 days in spite of 24 hours she was placed on for drooling. She has a history of balance problems. No reports of trauma no fevers chills or other symptoms no cough or phlegm production. She does states she is having some trouble swallowing. (Kalen Hansen) - Related Data Home Medications Medication Instructions Recorded Confirmed Aspirin EC [Ecotrin Low Dose] 81 mg PO DAILY 09/17/16 05/20/17 Atorvastatin [Lipitor] 10 mg PO HS 09/17/16 05/20/17 Cetirizine HCl [Zyrtec] 10 mg PO DAILY PRN 09/17/16 05/20/17 Cholecalciferol [Vitamin D3] 2,000 unit PO DAILY 09/17/16 05/20/17 Diclofenac Potassium [Cataflam] 50 mg PO BID PRN 09/17/16 05/20/17 Docusate [Colace] 100 - 200 mg PO DAILY 09/17/16 05/20/17 Ubidecarenone [Co Q-10] 100 mg PO DAILY 09/17/16 05/20/17 Fludrocortisone [Florinef] 0.1 mg PO DAILY 12/06/16 05/20/17 Losartan [Cozaar] 50 mg PO HS 12/06/16 05/20/17 Vitamin B Complex 1 cap PO DAILY 12/06/16 05/20/17 amLODIPine BESYLATE [Norvasc] 5 mg PO HS PRN 12/06/16 05/20/17 amLODIPine [Norvasc] 5 mg PO DAILY 12/06/16 05/20/17 Omeprazole 20 mg PO AC-BRKFST 05/20/17 05/20/17 Scopolamine 1 patch TRANSDERM Q72H 05/20/17 05/20/17 Allergies Allergy/AdvReac Type Severity Reaction Status Date / Time alendronate sodium AdvReac Migraines Verified 05/20/17 18:48 [From Fosamax] Iodinated Contrast- Oral and AdvReac Nausea & Verified 05/20/17 18:48 IV Dye Vomiting [Iodinated Contrast Media - Oral and] Review of Systems ROS Other: All systems not noted in ROS Statement are negative. <Kalen Hansen - Last Filed: 05/20/17 21:09> ROS Other: All systems not noted in ROS Statement are negative. <Jesse Gregory - Last Filed: 05/20/17 22:51> ROS Statement: Those systems with pertinent positive or pertinent negative responses have been documented in the HPI. Past Medical History Past Medical History: Cancer, Hyperlipidemia, Hypertension Additional Past Medical History / Comment(s): states "having trouble swallowing and food staying stuck in my throat and I can taste it", constipation,patient states she has "balance problems" and walks with a walker,hx breast CA 1979-no radiation or chemo,states History of Any Multi-Drug Resistant Organisms: None Reported Past Surgical History: Tonsillectomy Additional Past Surgical History / Comment(s): right side mastectomy Past Anesthesia/Blood Transfusion Reactions: No Reported Reaction Past Psychological History: No Psychological Hx Reported Smoking Status: Former smoker Past Alcohol Use History: None Reported Past Drug Use History: None Reported - Past Family History Mother Family Medical History: No Reported History Father Additional Family Medical History / Comment(s): aneurysm <Kalen Hansen - Last Filed: 05/20/17 21:09> General Exam Limitations: no limitations General appearance: alert, in no apparent distress Head exam: Present: atraumatic, normocephalic, normal inspection Eye exam: Present: normal appearance, PERRL, EOMI. Absent: scleral icterus, conjunctival injection, periorbital swelling ENT exam: Present: mucous membranes dry Neck exam: Present: normal inspection. Absent: tenderness, meningismus, lymphadenopathy Respiratory exam: Present: normal lung sounds bilaterally. Absent: respiratory distress, wheezes, rales, rhonchi, stridor Cardiovascular Exam: Present: regular rate, normal rhythm, normal heart sounds. Absent: systolic murmur, diastolic murmur, rubs, gallop, clicks GI/Abdominal exam: Present: soft, normal bowel sounds. Absent: distended, tenderness, guarding, rebound, rigid Extremities exam: Present: normal inspection, full ROM, normal capillary refill. Absent: tenderness, pedal edema, joint swelling, calf tenderness Back exam: Present: normal inspection Neurological exam: Present: alert, oriented X3, CN II-XII intact Psychiatric exam: Present: normal affect, normal mood Skin exam: Present: warm, dry, intact, normal color. Absent: rash <Kalen Hansen - Last Filed: 05/20/17 21:09> <Jesse Gregory - Last Filed: 05/20/17 22:51> - General Exam Comments Initial Comments: This is a well-developed well-nourished awake alert oriented 3 female she does demonstrate some lip smacking (Kalen Hansen) Course <Kalen Hansen - Last Filed: 05/20/17 21:09> <Jesse Gregory - Last Filed: 05/20/17 22:51> Vital Signs 05/20/17 05/20/17 05/20/17 18:12 18:48 21:15 Temperature 98.2 F 97.8 F Pulse Rate 87 89 83 Respiratory 18 24 18 Rate Blood Pressure 181/75 195/86 192/87 O2 Sat by Pulse 100 100 97 Oximetry 05/20/17 22:13 Temperature Pulse Rate 93 Respiratory 18 Rate Blood Pressure 182/85 O2 Sat by Pulse 98 Oximetry - Reevaluation(s) Reevaluation #1: 05/20/17 21:09 ^The patient's care will be endorsed to Dr. Gregory at our 21:00 PM shift change. (Kalen Hansen) Reevaluation #2: 05/20/17 22:50 -patient Intuniv drooling, involuntary lipsmacking, neurological complaints. Patient attempted to walk and was unable to walk secondary to dizziness and weakness. (Jesse Gregory) Medical Decision Making - Lab Data Result diagrams: 05/20/17 18:57 05/20/17 18:57 <Kalen Hansen - Last Filed: 05/20/17 21:09> - Lab Data Result diagrams: 05/20/17 18:57 05/20/17 18:57 - Radiology Data Radiology results: report reviewed (CT brain and chest x-ray are negative), image reviewed <Jesse Gregory - Last Filed: 05/20/17 22:51> - Medical Decision Making 86 female to be evaluated for neurological evaluation, also mental status, possible medication reaction, blood pressure control (Jesse Gregory) - Lab Data Lab Results 05/20/17 05/20/17 05/20/17 Range/Units 18:57 18:57 18:57 WBC 6.4 (3.8-10.6) k/uL RBC 4.58 (3.80-5.40) m/uL Hgb 13.1 (11.4-16.0) gm/dL Hct 39.4 (34.0-46.0) % MCV 86.1 (80.0-100.0) fL MCH 28.6 (25.0-35.0) pg MCHC 33.3 (31.0-37.0) g/dL RDW 13.4 (11.5-15.5) % Plt Count 279 (150-450) k/uL Neutrophils % 63 % Lymphocytes % 26 % Monocytes % 8 % Eosinophils % 2 % Basophils % 0 % Neutrophils # 4.0 (1.3-7.7) k/uL Lymphocytes # 1.6 (1.0-4.8) k/uL Monocytes # 0.5 (0-1.0) k/uL Eosinophils # 0.1 (0-0.7) k/uL Basophils # 0.0 (0-0.2) k/uL Sodium 145 (137-145) mmol/L Potassium 3.4 L (3.5-5.1) mmol/L Chloride 100 (98-107) mmol/L Carbon Dioxide 32 H (22-30) mmol/L Anion Gap 13 mmol/L BUN 19 H (7-17) mg/dL Creatinine 0.70 (0.52-1.04) mg/dL Est GFR (MDRD) Af Amer >60 (>60 ml/min/1.73 sqM) Est GFR (MDRD) Non-Af >60 (>60 ml/min/1.73 sqM) Glucose 97 (74-99) mg/dL Calcium 10.4 H (8.4-10.2) mg/dL Magnesium 2.0 (1.6-2.3) mg/dL Total Bilirubin 1.0 (0.2-1.3) mg/dL AST 24 (14-36) U/L ALT 29 (9-52) U/L Alkaline Phosphatase 87 (38-126) U/L Total Creatine Kinase 42 (30-135) U/L CK-MB (CK-2) 1.4 (0.0-2.4) ng/mL CK-MB (CK-2) Rel Index 3.3 Total Protein 7.7 (6.3-8.2) g/dL Albumin 4.5 (3.5-5.0) g/dL Urine Color Urine Appearance (Clear) Urine pH (5.0-8.0) Ur Specific [place] (1.001-1.035) Urine Protein (Negative) Urine Glucose (UA) (Negative) Urine Ketones (Negative) Urine Blood (Negative) Urine Nitrite (Negative) Urine Bilirubin (Negative) Urine Urobilinogen (<2.0) mg/dL Ur Leukocyte Esterase (Negative) 05/20/17 Range/Units 20:39 WBC (3.8-10.6) k/uL RBC (3.80-5.40) m/uL Hgb (11.4-16.0) gm/dL Hct (34.0-46.0) % MCV (80.0-100.0) fL MCH (25.0-35.0) pg MCHC (31.0-37.0) g/dL RDW (11.5-15.5) % Plt Count (150-450) k/uL Neutrophils % % Lymphocytes % % Monocytes % % Eosinophils % % Basophils % % Neutrophils # (1.3-7.7) k/uL Lymphocytes # (1.0-4.8) k/uL Monocytes # (0-1.0) k/uL Eosinophils # (0-0.7) k/uL Basophils # (0-0.2) k/uL Sodium (137-145) mmol/L Potassium (3.5-5.1) mmol/L Chloride (98-107) mmol/L Carbon Dioxide (22-30) mmol/L Anion Gap mmol/L BUN (7-17) mg/dL Creatinine (0.52-1.04) mg/dL Est GFR (MDRD) Af Amer (>60 ml/min/1.73 sqM) Est GFR (MDRD) Non-Af (>60 ml/min/1.73 sqM) Glucose (74-99) mg/dL Calcium (8.4-10.2) mg/dL Magnesium (1.6-2.3) mg/dL Total Bilirubin (0.2-1.3) mg/dL AST (14-36) U/L ALT (9-52) U/L Alkaline Phosphatase (38-126) U/L Total Creatine Kinase (30-135) U/L CK-MB (CK-2) (0.0-2.4) ng/mL CK-MB (CK-2) Rel Index Total Protein (6.3-8.2) g/dL Albumin (3.5-5.0) g/dL Urine Color Light Yellow Urine Appearance Clear (Clear) Urine pH 7.0 (5.0-8.0) Ur Specific [place] 1.005 (1.001-1.035) Urine Protein Negative (Negative) Urine Glucose (UA) Negative (Negative) Urine Ketones Negative (Negative) Urine Blood Negative (Negative) Urine Nitrite Negative (Negative) Urine Bilirubin Negative (Negative) Urine Urobilinogen <2.0 (<2.0) mg/dL Ur Leukocyte Esterase Negative (Negative) Disposition <Kalen Hansen - Last Filed: 05/20/17 21:09> <Jesse Gregory - Last Filed: 05/20/17 22:51> Clinical Impression: Hypertensive urgency, Medication reaction, Weakness, Altered mental status, Hypertension, Dehydration Disposition: ADMITTED IP TO THIS [facility] Condition: Fair Referrals: Belkis Buchanan MD [Primary Care Provider] - 1-2 days
[2017-05-20 19:43] LABS: Basophils % (A) 0 %; Eosinophils # (A) 0.1 k/uL (0-0.7); Eosinophils % (A) 2 %; HCT 39.4 % (34.0-46.0); HGB 13.1 gm/dL (11.4-16.0); Lymphocytes # (A) 1.6 k/uL (1.0-4.8); Lymphocytes % (A) 26 %; MCH 28.6 pg (25.0-35.0); MCHC 33.3 g/dL (31.0-37.0); MCV 86.1 fL (80.0-100.0); Mean Platelet Volume 6.5; Monocytes # (A) 0.5 k/uL (0-1.0); Monocytes % (A) 8 %; Neutrophils % (A) 63 %; Platelet Count 279 k/uL (150-450); RBC 4.58 m/uL (3.80-5.40); RDW 13.4 % (11.5-15.5); WBC 6.4 k/uL (3.8-10.6)
[2017-05-20 19:54] LABS: ALT 29 U/L (9-52); AST 24 U/L (14-36); Albumin 4.5 g/dL (3.5-5.0); Alkaline Phosphatase 87 U/L (38-126); Anion Gap 13 mmol/L; Blood Urea Nitrogen 19 mg/dL (7-17); Calcium 10.4 mg/dL (8.4-10.2); Carbon Dioxide 32 mmol/L (22-30); Chloride 100 mmol/L (98-107); Glucose 97 mg/dL (74-99); Potassium 3.4 mmol/L (3.5-5.1); Sodium 145 mmol/L (137-145); Total Protein 7.7 g/dL (6.3-8.2)
[2017-05-20 20:13] LABS: Creatine Kinase MB 1.4 ng/mL (0.0-2.4)
[2017-05-20 20:47] LABS: Appearance,Urine Clear (Clear); Bilirubin,Urine Negative (Negative); Blood,Urine Negative (Negative); Color,Urine Light Yellow; Glucose,Urine (UA) Negative (Negative); Ketones,Urine Negative (Negative); Leukocyte Esterase,Urine Negative (Negative); Nitrite,Urine Negative (Negative); Protein,Urine Negative (Negative); Specific Gravity,Urine 1.005 (1.001-1.035); Urobilinogen,Urine <2.0 mg/dL (<2.0)
--- NOTE | 2017-05-20 21:02 | CT ---
EXAMINATION TYPE: CT brain wo con DATE OF EXAM: 05/20/2017 HISTORY: Dehydration and headache. CT DLP: 938.4 mGycm. Automated Exposure Control for Dose Reduction was Utilized. TECHNIQUE: CT scan of the head is performed without contrast. COMPARISON: CT brain September 17, 2016. FINDINGS: There is no acute intracranial hemorrhage or midline shift identified. There is diffuse v entricular and sulcal prominence consistent with diffuse age-related cerebral atrophy. There is low- attenuation in the periventricular white matter consistent with chronic small vessel ischemic change. Vascular calcification distal vertebral and internal carotid arteries bilaterally is redemonstrated. The globes are intact and the visualized sinuses are clear. IMPRESSION: No acute intracranial hemorrhage or midline shift. There is moderate diffuse age-relate d cerebral atrophy and chronic small vessel ischemic change redemonstrated without significant change from prior study seen.
[2017-05-20] MEDS ORDERED: ONDANSETRON 4 MG/2 ML VIAL IVP STA (21:09)
--- NOTE | 2017-05-20 21:20 | XR ---
EXAMINATION TYPE: XR chest 2V DATE OF EXAM: 05/20/2017 COMPARISON: Chest x-ray March 25, 2017 HISTORY: Cough. History of right-sided breast cancer TECHNIQUE: Frontal and lateral views of the chest are obtained. FINDINGS: There is chronic parenchymal change without suspicious focal air space opacity, pleural ef fusion, or pneumothorax seen. The cardiac silhouette size is upper limits of normal with atheroscler otic change in aortic knob. The osseous structures are demineralized. Right breast shadow is absent . IMPRESSION: Chronic parenchymal changes without suspicious acute infiltrate.
[2017-05-20] MEDS ORDERED: diphenhydrAMINE 50 MG/ML 1 ML VIAL IVP STA (22:05)
[2017-05-20] MEDS ORDERED: ONDANSETRON 4 MG/2 ML VIAL IVP PRN (22:49)
[2017-05-20] MEDS ORDERED: diphenhydrAMINE 50 MG/ML 1 ML VIAL IVP PRN (22:49)
[2017-05-20] MEDS ORDERED: hydrALAZINE HCL 20 MG/ML 1 ML VIAL IVP PRN (22:51)
[2017-05-20] MEDS ORDERED: LABETALOL 5 MG/ML VIAL MDV IVP STA (22:51)
[2017-05-21] MEDS ORDERED: NALOXONE 0.4 MG/ML 1 ML VIAL IV PRN (00:02)
[2017-05-21] MEDS ORDERED: ACETAMINOPHEN TAB 325 MG TAB PO PRN (00:02)
[2017-05-21] MEDS ORDERED: LORATADINE 10 MG TAB PO PRN (00:05)
[2017-05-21] MEDS ORDERED: ETODOLAC 200 MG CAPSULE PO PRN (00:05)
[2017-05-21] MEDS ORDERED: POTASSIUM CHLORIDE 10 MEQ in WATER FOR INJECTION 1 100ML.BAG IVPB STA (00:21)
[2017-05-21 00:24] VITALS: BMI 14.9
--- NOTE | 2017-05-21 00:27 | P.HPIM ---
History of Present Illness H&P Date: 05/20/17 Chief Complaint: Confusion, failure to thrive and weakness 86-year-old female who is brought in for evaluation for inability to eat and drink. Patient is feeling nauseous and she spitting up everything that is put in her mouth including soft foods. She chronically has dysphagia, was worked up with video swallow evaluation as well as EGD in the past. Because of persistent drooling secondary to chronic dysphagia her primary care physician prescribed scopolamine patch which she used for 3 days. After using it she started having severe lip smacking, started spitting up food. A family member also reported that she was confused at times, had problems with her memory. She also hasn't been able to walk using a walker because of general weakness. She has a history of balance problems. No reports of trauma, no recent illness , no fevers or chills or other symptoms no cough or phlegm production. No diarrhea or constipation, no chest pain or shortness of breath, no headaches. No focal weakness or numbness. Review of Systems 12 point review of system was performed, negative except for HPI Past Medical History Past Medical History: Cancer, Hyperlipidemia, Hypertension Additional Past Medical History / Comment(s): states "having trouble swallowing and food staying stuck in my throat and I can taste it", constipation,patient states she has "balance problems" and walks with a walker,hx breast CA 1979-no radiation or chemo,states History of Any Multi-Drug Resistant Organisms: None Reported Past Surgical History: Tonsillectomy Additional Past Surgical History / Comment(s): right side mastectomy Past Anesthesia/Blood Transfusion Reactions: No Reported Reaction Past Psychological History: No Psychological Hx Reported Smoking Status: Former smoker Past Alcohol Use History: None Reported Past Drug Use History: None Reported - Past Family History Mother Family Medical History: No Reported History Father Family Medical History: Unable to Obtain (Secondary to old age) Additional Family Medical History / Comment(s): aneurysm Medications and Allergies Home Medications Medication Instructions Recorded Confirmed Type Aspirin EC [Ecotrin Low Dose] 81 mg PO DAILY 09/17/16 05/20/17 History Atorvastatin [Lipitor] 10 mg PO HS 09/17/16 05/20/17 History Cetirizine HCl [Zyrtec] 10 mg PO DAILY PRN 09/17/16 05/20/17 History Cholecalciferol [Vitamin D3] 2,000 unit PO DAILY 09/17/16 05/20/17 History Diclofenac Potassium [Cataflam] 50 mg PO BID PRN 09/17/16 05/20/17 History Docusate [Colace] 100 - 200 mg PO DAILY 09/17/16 05/20/17 History Ubidecarenone [Co Q-10] 100 mg PO DAILY 09/17/16 05/20/17 History Fludrocortisone [Florinef] 0.1 mg PO DAILY 12/06/16 05/20/17 History Losartan [Cozaar] 50 mg PO HS 12/06/16 05/20/17 History Vitamin B Complex 1 cap PO DAILY 12/06/16 05/20/17 History amLODIPine BESYLATE [Norvasc] 5 mg PO HS PRN 12/06/16 05/20/17 History amLODIPine [Norvasc] 5 mg PO DAILY 12/06/16 05/20/17 History Omeprazole 20 mg PO AC-BRKFST 05/20/17 05/20/17 History Scopolamine 1 patch TRANSDERM Q72H 05/20/17 05/20/17 History Allergies Allergy/AdvReac Type Severity Reaction Status Date / Time alendronate sodium AdvReac Migraines Verified 05/20/17 18:48 [From Fosamax] Iodinated Contrast- Oral and AdvReac Nausea & Verified 05/20/17 18:48 IV Dye Vomiting [Iodinated Contrast Media - Oral and] Physical Exam Vitals: Vital Signs Temp Pulse Resp BP Pulse Ox 05/20/17 23:28 69 17 132/66 98 05/20/17 23:02 86 18 175/84 99 05/20/17 22:13 93 18 182/85 98 05/20/17 21:15 83 18 192/87 97 05/20/17 18:48 97.8 F 89 24 195/86 100 05/20/17 18:12 98.2 F 87 18 181/75 100 Intake and Output 05/20/17 05/20/17 05/21/17 14:59 22:59 06:59 Other: Weight 41.73 kg Patient Weight 05/21/17 06:59 Weight 41.73 kg Constitutional: No acute distress, conversant, pleasant Eyes:Anicteric sclerae, moist conjunctiva, no lid-lag, PERRLA, ENMT: Very dry mucous membranes, Oropharynx clear, no erythema, exudates Neck: Supple, FROM, no masses, or JVD, No carotid bruits, No thyromegaly Lungs: Clear to auscultation, Clear to percussion, Normal respiratory effort, no accessory muscle use Cardiovascular: Heart regular in rate and rhythm, No murmurs, gallops, or rubs, No peripheral edema Abdominal: Soft, Nontender, no guarding, rebound or rigidity, Normoactive bowel sounds, No hepatomegaly, No splenomegaly, No palpable mass Skin: Normal temperature, tone, texture, turgor, no induration, No subcutaneous nodules, No rash, lesions, No ulcers Extremities: No digital cyanosis, No clubbing, Pedal pulses intact and symmetrical, Radial pulses intact and symmetrical, No calf tenderness Psychiatric: Alert and oriented to person, place and time, appropriate affect, intact judgement Neuro: Muscles Strength 5/5 in all 4 extremities, Sensation to light touch grossly present throughout, Cranial nerves II-XII grossly intact, no focal sensory deficits Results CBC & Chem 7: 05/20/17 18:57 05/20/17 18:57 Labs: Abnormal Lab Results - Last 24 Hours (Table) 05/20/17 Range/Units 18:57 Potassium 3.4 L (3.5-5.1) mmol/L Carbon Dioxide 32 H (22-30) mmol/L BUN 19 H (7-17) mg/dL Calcium 10.4 H (8.4-10.2) mg/dL Assessment and Plan Plan: #1 Generalized weakness/failure to thrive: Likely secondary to dehydration from not eating and drinking over the last several days. Start IV fluids normal saline at 75 mL per hour Order physical therapy and occupational therapy evaluations. Labs and head computed tomography scan reviewed #2 Medication adverse effect: Scopolamine likely causing her to have confusion, dry mucous membranes, lipsmacking We'll discontinue Family is aware not to give it again. #3 Accelerated hypertension: Patient received IV labetalol in the emergency department Blood pressure did come down nicely Continue oral hypertension medications including Norvasc, metoprolol and losartan. #4 Hyperlipidemia: Continue statin #5 Hypokalemia: Likely secondary to decreased oral intake Replace and follow potassium level in the morning. #5 DVT prophylaxis: SCDs and early mobilization
[2017-05-21 07:11] LABS: Basophils % (A) 0 %; Eosinophils # (A) 0.1 k/uL (0-0.7); Eosinophils % (A) 2 %; HGB 11.8 gm/dL (11.4-16.0); Hypochromasia Slight; Lymphocytes # (A) 1.9 k/uL (1.0-4.8); Lymphocytes % (A) 28 %; MCH 26.4 pg (25.0-35.0); MCHC 30.1 g/dL (31.0-37.0); MCV 87.6 fL (80.0-100.0); Monocytes # (A) 0.6 k/uL (0-1.0); Monocytes % (A) 9 %; Neutrophils % (A) 60 %; Platelet Count 275 k/uL (150-450); RBC 4.45 m/uL (3.80-5.40); RDW 14.9 % (11.5-15.5); WBC 6.7 k/uL (3.8-10.6)
[2017-05-21 07:25] LABS: Anion Gap 11 mmol/L; Blood Urea Nitrogen 9 mg/dL (7-17); Calcium 9.3 mg/dL (8.4-10.2); Carbon Dioxide 27 mmol/L (22-30); Chloride 107 mmol/L (98-107); Glucose 100 mg/dL (74-99); Magnesium 1.6 mg/dL (1.6-2.3); Phosphorus 2.8 mg/dL (2.5-4.5); Potassium 3.4 mmol/L (3.5-5.1); Sodium 145 mmol/L (137-145)
[2017-05-21] MEDS: METOPROLOL TARTRATE 50 MG TAB PO SCH ×2 (08:51→21:40)
[2017-05-21] MEDS: DOCUSATE 100 MG CAP PO SCH (08:52)
[2017-05-21] MEDS: ASPIRIN 81 MG PO SCH (08:52)
[2017-05-21] MEDS: PANTOPRAZOLE 40 MG TABLET PO SCH (08:52)
[2017-05-21] MEDS: FLUDROCORTISONE 0.1 MG TAB PO SCH (08:52)
[2017-05-21] MEDS: CHOLECALCIFEROL 1,000 UNIT TAB PO SCH (08:52)
[2017-05-21] MEDS: amLODIPine 5 MG TAB PO SCH (08:52)
[2017-05-21] MEDS ORDERED: ENOXAPARIN 40 MG/0.4 ML SYRINGE SQ SCH (09:00)
[2017-05-21] MEDS ORDERED: PANTOPRAZOLE 40 MG/10 ML VIAL IVP SCH (09:00)
--- NOTE | 2017-05-21 12:53 | P.PN ---
Subjective Progress Note Date: 05/21/17 Principal diagnosis: The patient is a 86-year-old female that presented with altered mental status, intractable nausea vomiting and persistent lipsmacking secondary to scopolamine toxicity that she was prescribed for continuous drooling. The patient also has some failure to thrive and has had reported 30 pound weight loss in the last 3 months, with decreased appetite.. Patient has had previous workup with the video swallow done by GI Dr. Love with a pretty unremarkable normal video swallow and EGD. Patient complaining of lip smacking, poor appetite and reports an almost 30 pound weight loss last 3 months. No acute events overnight Objective - Vital Signs Vital signs: Vital Signs Temp 98.4 F 05/21/17 07:00 Pulse 74 05/21/17 12:00 Resp 16 05/21/17 12:00 BP 147/68 05/21/17 07:00 Pulse Ox 100 05/21/17 07:00 Intake & Output 05/20/17 05/21/17 05/21/17 18:59 06:59 18:59 Weight 41.73 kg 39.5 kg Other: Voiding Method Bedside Commode Toilet # Voids 1 # Bowel Movements 1 - Exam Constitutional: No acute distress, conversant, pleasant, cachectoid appearance Eyes: Anicteric sclerae, moist conjunctiva, no lid-lag, PERRLA ENMT: Bilateral temporal wasting/AT,Oropharynx clear, no erythema, exudates Neck:Supple, FROM, no masses, or JVD, No carotid bruits; No thyromegaly Lungs: Clear to auscultation, Clear to percussion, Normal respiratory effort, no accessory muscle use Cardiovascular: Heart regular in rate and rhythm, No murmurs, gallops, or rubs no peripheral edema Abdominal: Soft Nontender, nom distended, no guarding, no rebound or rigidity, Normoactive bowel sounds No hepatomegaly, No splenomegaly, No palpable mass No abdominal wall hernia noted Skin: Normal temperature, tone, texture, turgor, No induration No subcutaneous nodules, No rash, lesions, No ulcers Extremities:No digital cyanosis No clubbing, Pedal pulses intact and symmetrical Radial pulses intact and symmetrical Normal gait and station, No calf tenderness Psychiatric: Alert and oriented to person, place and time, Appropriate affect Intact judgement Neuro: Muscles Strength 5/5 in all 4 extremities, Sensation to light touch grossly present throughout, Cranial nerves II-XII grossly intact. No focal sensory deficits - Labs CBC & Chem 7: 05/21/17 06:51 05/21/17 06:51 Labs: Abnormal Lab Results - Last 24 Hours (Table) 05/20/17 05/21/17 05/21/17 Range/Units 18:57 06:51 06:51 MCHC 30.1 L (31.0-37.0) g/dL Potassium 3.4 L 3.4 L (3.5-5.1) mmol/L Carbon Dioxide 32 H (22-30) mmol/L BUN 19 H (7-17) mg/dL Glucose 100 H (74-99) mg/dL Calcium 10.4 H (8.4-10.2) mg/dL Assessment and Plan (1) Adult failure to thrive syndrome Narrative/Plan: * Previous workup with swallow study has been normal, consult dietary for further recommendations * Start ensure chocolate 3 times a day with meals, * We'll start Marinol for appetite stimulation * Monitor by mouth intake Current Visit: Yes Status: Acute Code(s): R62.7 - ADULT FAILURE TO THRIVE SNOMED Code(s): 007466739 (2) Poisoning, scopolamine Narrative/Plan: * Continue to monitor for side effects scopolamine patches been discontinued Current Visit: Yes Status: Acute Code(s): T44.3X1A - POISONING BY OTH PARASYMPATH AND SPASMOLYTICS, ACC, INIT SNOMED Code(s): 90476918 (3) Accelerated hypertension Narrative/Plan: * Blood pressure still elevated at times but improved from admission * We'll continue her home metoprolol and Norvasc dose but will increase her losartan to 50 mg by mouth twice a day * Continue to monitor blood pressure Current Visit: Yes Status: Acute Code(s): I10 - ESSENTIAL (PRIMARY) HYPERTENSION SNOMED Code(s): 67866747 (4) Hypokalemia Narrative/Plan: * Replace electrolytes and recheck her potassium and mag in the morning Current Visit: Yes Status: Acute Code(s): E87.6 - HYPOKALEMIA SNOMED Code( s): 14483068 Plan: Patient doing well minor electrolyte abnormalities, we'll start ensure with meals follow-up dietary recommendations, add appetite stimulant and continue to monitor
[2017-05-21] MEDS ORDERED: POTASSIUM CHLORIDE 20 MEQ in WATER FOR INJECTION 1 100ML.BAG IVPB SCH (12:56)
[2017-05-21] MEDS: MAGNESIUM SULFATE-D5W PMX 1 GM in DEXTROSE/WATER 1 100ML.BAG IVPB SCH ×2 (13:25→14:34)
[2017-05-21] MEDS: DRONABINOL 2.5 MG CAP PO SCH ×2 (13:25→18:03)
[2017-05-21] MEDS: POTASSIUM CHLORIDE 20 MEQ in WATER FOR INJECTION 1 100ML.BAG IVPB SCH ×2 (16:34→19:56)
[2017-05-21] MEDS ORDERED: ATORVASTATIN 10 MG TAB PO SCH (21:00)
[2017-05-21] MEDS ORDERED: LOSARTAN 50 MG TAB PO SCH ×2 (21:00)
[2017-05-21] MEDS: LOSARTAN 50 MG TAB PO SCH (21:40)
[2017-05-22] MEDS: LOSARTAN 50 MG TAB PO SCH (08:44)
[2017-05-22] MEDS: METOPROLOL TARTRATE 50 MG TAB PO SCH (08:44)
[2017-05-22] MEDS: DOCUSATE 100 MG CAP PO SCH (08:44)
[2017-05-22] MEDS: DRONABINOL 2.5 MG CAP PO SCH (08:44)
[2017-05-22] MEDS: PANTOPRAZOLE 40 MG TABLET PO SCH (08:44)
[2017-05-22] MEDS: FLUDROCORTISONE 0.1 MG TAB PO SCH (08:44)
[2017-05-22] MEDS: amLODIPine 5 MG TAB PO SCH (08:45)
[2017-05-22] MEDS: CHOLECALCIFEROL 1,000 UNIT TAB PO SCH (08:45)
[2017-05-22] MEDS: ASPIRIN 81 MG PO SCH (08:45)
[2017-05-22] MEDS ORDERED: amLODIPine 5 MG TAB PO STA (09:59)
--- NOTE | 2017-05-22 12:23 | P.DS ---
Providers Date of admission: 05/20/17 22:51 Attending physician: Michael Robles MD Primary care physician: Belkis Buchanan MD - Discharge Diagnosis(es) (1) Adult failure to thrive syndrome Current Visit: Yes Status: Acute (2) Poisoning, scopolamine Current Visit: Yes Status: Acute (3) Accelerated hypertension Current Visit: Yes Status: Acute (4) Hypokalemia Current Visit: Yes Status: Acute Hospital Course: The patient is a 86-year-old female that was admitted for altered mental status found to be secondary to scopolamine toxicity after she presented with confusion and lip smacking. The patient has been started on this medication to reduce drooling by her PCP, the scopolamine patch was immediately discontinued. CT of the head was negative for any acute ischemia did show diffuse age-consistent atrophy. The patient was complaining of weakness and there was concern for adult failure to thrive as there was a reported history of approximately 30 pound weight loss. The patient had been previously been evaluated by GI for dysphagia and swallow eval at that time was otherwise normal , the patient was seen by dietary and speech therapy. Given the patient's history of poor appetite and anorexia, she was started on Marinol which improved her symptoms, at time of discharge she was eating 50% of her breakfast and 75% of her dinner. The patient was noted to have also elevated blood pressure and her antihypertensive regimen was adjusted her Norvasc was titrated up from 5mg to 10 mg daily and her losartan was increased to 50 mg by mouth twice a day. She was subsequently discharged home in stable condition this discharge process took approximately 30 minutes. Patient Condition at Discharge: Fair Plan - Discharge Summary Discharge Rx Participant: No New Discharge Prescriptions: No Action Cholecalciferol [Vitamin D3] 2,000 unit PO DAILY Atorvastatin [Lipitor] 10 mg PO HS Diclofenac Potassium [Cataflam] 50 mg PO BID PRN PRN Reason: Migraine Headache Ubidecarenone [Co Q-10] 100 mg PO DAILY Docusate [Colace] 100 - 200 mg PO DAILY Cetirizine HCl [Zyrtec] 10 mg PO DAILY PRN PRN Reason: Allergy Symptoms Aspirin EC [Ecotrin Low Dose] 81 mg PO DAILY amLODIPine [Norvasc] 5 mg PO DAILY amLODIPine BESYLATE [Norvasc] 5 mg PO HS PRN PRN Reason: if sys b/p >120 Losartan [Cozaar] 50 mg PO HS Fludrocortisone [Florinef] 0.1 mg PO DAILY Vitamin B Complex 1 cap PO DAILY Scopolamine 1 patch TRANSDERM Q72H Omeprazole 20 mg PO AC-BRKFST Discharge Medication List Aspirin EC [Ecotrin Low Dose] 81 mg PO DAILY 09/17/16 [History] Atorvastatin [Lipitor] 10 mg PO HS 09/17/16 [History] Cetirizine HCl [Zyrtec] 10 mg PO DAILY PRN 09/17/16 [History] Cholecalciferol [Vitamin D3] 2,000 unit PO DAILY 09/17/16 [History] Diclofenac Potassium [Cataflam] 50 mg PO BID PRN 09/17/16 [History] Docusate [Colace] 100 - 200 mg PO DAILY 09/17/16 [History] Ubidecarenone [Co Q-10] 100 mg PO DAILY 09/17/16 [History] Fludrocortisone [Florinef] 0.1 mg PO DAILY 12/06/16 [History] Losartan [Cozaar] 50 mg PO HS 12/06/16 [History] Vitamin B Complex 1 cap PO DAILY 12/06/16 [History] amLODIPine BESYLATE [Norvasc] 5 mg PO HS PRN 12/06/16 [History] amLODIPine [Norvasc] 5 mg PO DAILY 12/06/16 [History] Omeprazole 20 mg PO AC-BRKFST 05/20/17 [History] Scopolamine 1 patch TRANSDERM Q72H 05/20/17 [History] Follow up Appointment(s)/Referral(s): Belkis Buchanan MD [Primary Care Provider] - 1-2 days
[2017-05-22 15:30] VITALS: BP 134/64; PULSE 69; RESP 18; TEMP 97.6
[2017-05-23] MEDS ORDERED: amLODIPine 10 MG TAB PO SCH (09:00)
== END 2017-05-22 16:34 | disposition home or self-care (01) ==
LOC: EC 18:04 → 3SUR 22:51 → 3OBS 05-21 09:41
PROVIDERS: ADMIT Internal Medicine; ATTEND Internal Medicine
DX: R62.7 Adult failure to thrive (principal); I10 Essential (primary) hypertension; E87.6 Hypokalemia; T44.3X1A Poisoning by other parasympatholytics [anticholinergics and antimuscarinics] and spasmolytics, accidental (unintentional), initial encounter; R41.82 Altered mental status, unspecified; E78.5 Hyperlipidemia, unspecified; E86.0 Dehydration; Z79.899 Other long term (current) drug therapy; Z79.82 Long term (current) use of aspirin; Z87.891 Personal history of nicotine dependence; Z85.3 Personal history of malignant neoplasm of breast; I16.0 Hypertensive urgency; R11.2 Nausea with vomiting, unspecified; R19.7 Diarrhea, unspecified; R13.10 Dysphagia, unspecified
CPT/HCPCS: 99285; 96375 ×4; 96361 ×2; 96365; 96366; 96367; 36415; 97162; 97166; 80053; 80048; 82550; 82553; 83735 ×2; 84100; 85025 ×2; 81003; 71020; 70450; G0378 ×3; J1200; Q0167 ×2; J3480 ×2; J2405; J3475

== ENCOUNTER → 2017-06-14 | Outpatient (CLI) | payer MEDICARE, BC ==
[2017-06-14 11:20] LABS: Anion Gap 14 mmol/L; Blood Urea Nitrogen 22 mg/dL (7-17); Calcium 10.4 mg/dL (8.4-10.2); Carbon Dioxide 29 mmol/L (22-30); Chloride 106 mmol/L (98-107); Glucose 108 mg/dL (74-99); Potassium 4.5 mmol/L (3.5-5.1); Sodium 149 mmol/L (137-145)
== END | disposition home or self-care (01) ==
LOC: LABWHC1 09:43
PROVIDERS: ATTEND Family Medicine
DX: I10 Essential (primary) hypertension (principal)
CPT/HCPCS: 36415; 80048

== ENCOUNTER → 2017-12-05 | Outpatient (CLI) | payer MEDICARE, BC ==
[2017-12-05 08:37] LABS: Calcium 10.1 mg/dL (8.4-10.2); Potassium 4.5 mmol/L (3.5-5.1)
[2017-12-05 08:53] LABS: T4, Free (Free Thyroxine) 2.15 ng/dL (0.78-2.19)
== END | disposition home or self-care (01) ==
LOC: LABWHC1 07:37
PROVIDERS: ATTEND Family Medicine
DX: N28.9 Disorder of kidney and ureter, unspecified (principal); R79.89 Other specified abnormal findings of blood chemistry
CPT/HCPCS: 36415; 80048; 84439; 84443

== ENCOUNTER → 2018-01-16 | Outpatient (CLI) | payer MEDICARE, BC ==
--- NOTE | 2018-01-16 12:04 | FL ---
EXAMINATION TYPE: FL barium swallow w video DATE OF EXAM: 01/16/2018 MODIFIED SWALLOW / DEGLUTITION STUDY CLINICAL HISTORY: Dysphagia. TECHNIQUE: Deglutition study is performed utilizing thin liquid barium, honey and nectar thick liqui d barium, barium thick pudding, and barium coated cracker. A total of 2 minutes 49 seconds of fluoros copic time was utilized during procedure. Approximately 15 cine sequences were acquired. Sterile imag es are saved to PACS. COMPARISON: None. FINDINGS: The oral and pharyngeal phases show some delay in initiation and propagation with all modal ities tested. It takes 5-6 swallows to get down barium coated pudding. Satisfactory mastication is se en with solid modalities tested. There is no evidence of penetration or aspiration with any modality tested on today's study. Mild to moderate pharyngeal residue was appreciated with honey thick liquid barium. IMPRESSION: No penetration or aspiration observed. Please refer to speech therapist notes for furthe r details if necessary.
== END | disposition home or self-care (01) ==
LOC: RADFLMAIN 11:17
PROVIDERS: ATTEND Otolaryngology
DX: R13.10 Dysphagia, unspecified (principal)
CPT/HCPCS: 74230

== ENCOUNTER 2018-02-03 16:48 | Emergency (ER) | payer MEDICARE, BC ==
--- NOTE | 2018-02-03 18:13 | ED ---
General Adult HPI - General Chief complaint: Recheck/Abnormal Lab/Rx Stated complaint: Feels like something is in mouth Time Seen by Provider: 02/03/18 17:01 Source: patient, RN notes reviewed, old records reviewed Mode of arrival: wheelchair Limitations: no limitations - History of Present Illness Initial comments: This is an 79-year-old female the ER for evaluation. Today patient presents for evaluation regards to nonspecific complaints. Patient states she is feeling of dysphagia dysmotility or difficulty swallowing. Patient has had symptoms for greater than 2 months, multiple different evaluations including upper endoscopy upper GI evaluation by ENT. Patient states is mainly occur at night but to also happened throughout the day which she feels she has some "she cannot - Related Data Home Medications Medication Instructions Recorded Confirmed Atorvastatin [Lipitor] 10 mg PO HS 09/17/16 02/03/18 Cetirizine HCl [Zyrtec] 10 mg PO DAILY PRN 09/17/16 02/03/18 Cholecalciferol [Vitamin D3] 2,000 unit PO DAILY 09/17/16 02/03/18 Docusate [Colace] 100 - 200 mg PO DAILY 09/17/16 02/03/18 Ubidecarenone [Co Q-10] 100 mg PO DAILY 09/17/16 02/03/18 Vitamin B Complex 1 cap PO DAILY 12/06/16 02/03/18 Amiodarone [Cordarone] 200 mg PO DAILY 02/03/18 02/03/18 Apixaban [Eliquis] 2.5 mg PO BID 02/03/18 02/03/18 Losartan [Cozaar] 50 mg PO BID PRN 02/03/18 02/03/18 Megestrol [Megace] 40 mg PO TID 02/03/18 02/03/18 Previous Rx's Medication Instructions Recorded Metoprolol Tartrate [Lopressor] 50 mg PO BID #60 tab 05/22/17 Allergies Allergy/AdvReac Type Severity Reaction Status Date / Time alendronate sodium AdvReac Migraines Verified 02/03/18 17:13 [From Fosamax] Iodinated Contrast- Oral and AdvReac Nausea & Verified 02/03/18 17:13 IV Dye Vomiting [Iodinated Contrast Media - Oral and] sertraline [From Zoloft] AdvReac Hallucinati Verified 02/03/18 17:13 ons Review of Systems ROS Statement: Those systems with pertinent positive or pertinent negative responses have been documented in the HPI. ROS Other: All systems not noted in ROS Statement are negative. Past Medical History Past Medical History: Atrial Fibrillation, Cancer, Hyperlipidemia, Hypertension Additional Past Medical History / Comment(s): states "having trouble swallowing and food staying stuck in my throat and I can taste it", constipation,patient states she has "balance problems" and walks with a walker,hx breast CA 1979-no radiation or chemo,states History of Any Multi-Drug Resistant Organisms: None Reported Past Surgical History: Tonsillectomy Additional Past Surgical History / Comment(s): right side mastectomy Past Anesthesia/Blood Transfusion Reactions: No Reported Reaction Past Psychological History: No Psychological Hx Reported Smoking Status: Former smoker Past Alcohol Use History: None Reported Past Drug Use History: None Reported - Past Family History Mother Family Medical History: No Reported History Father Family Medical History: Unable to Obtain (Secondary to old age) Additional Family Medical History / Comment(s): aneurysm General Exam - General Exam Comments Initial Comments: No oral exam finds findings Limitations: no limitations General appearance: alert, in no apparent distress Head exam: Present: atraumatic, normocephalic, normal inspection Eye exam: Present: normal appearance, PERRL, EOMI. Absent: scleral icterus, conjunctival injection, periorbital swelling ENT exam: Present: normal exam, mucous membranes moist Neck exam: Present: normal inspection. Absent: tenderness, meningismus, lymphadenopathy Respiratory exam: Present: normal lung sounds bilaterally. Absent: respiratory distress, wheezes, rales, rhonchi, stridor Cardiovascular Exam: Present: regular rate, normal rhythm, normal heart sounds. Absent: systolic murmur, diastolic murmur, rubs, gallop, clicks GI/Abdominal exam: Present: soft, normal bowel sounds. Absent: distended, tenderness, guarding, rebound, rigid Extremities exam: Present: normal inspection, full ROM, normal capillary refill. Absent: tenderness, pedal edema, joint swelling, calf tenderness Back exam: Present: normal inspection Neurological exam: Present: alert, oriented X3, CN II-XII intact Psychiatric exam: Present: normal affect, normal mood Skin exam: Present: warm, dry, intact, normal color. Absent: rash Course Vital Signs 02/03/18 16:53 Temperature 97.2 F L Pulse Rate 65 Respiratory 20 Rate Blood Pressure 116/72 O2 Sat by Pulse 98 Oximetry - Reevaluation(s) Reevaluation #1: 02/03/18 18:11 Patient's medical records thoroughly reviewed without any significant findings Reevaluation #2: 02/03/18 18:12 This is a follow-up with family doctor Medical Decision Making - Medical Decision Making 87 female the ER for evaluation presented today for evaluation regards to feeling of something in her mouth. No acute cause found. Patient can be discharged home - Lab Data Lab Results 02/03/18 Range/Units 17:34 Group A Strep Rapid Negative (Negative) - Radiology Data Radiology results: report reviewed (CT soft tissue neck negative for acute disease), image reviewed Disposition Clinical Impression: Dysphagia Disposition: HOME SELF-CARE Condition: Good Instructions: Dysphagia (ED) Is patient prescribed a controlled substance at d/c from ED?: No Referrals: Belkis Buchanan MD [Primary Care Provider] - 1-2 days
--- NOTE | 2018-02-03 19:14 | CT ---
EXAMINATION TYPE: CT soft tissue neck wo con DATE OF EXAM: 02/03/2018 HISTORY: pain; dysphagia COMPARISON: None CT DLP: 192.5 mGycm. Automated Exposure Control for Dose Reduction was Utilized. TECHNIQUE: CT scan of the neck is performed , patient injected with mL of , axial images are obtaine d, coronal and sagittal reformatted images are reviewed. FINDINGS: Imaging was obtained from the estiven cephalad through the nasopharynx level. AERODIGESTIVE SYSTEM: The airway is unremarkable. The nasopharynx, oropharynx, oral cavity, hypophary nx and visualized larynx are negative. No radiopaque foreign bodies. The thoracic esophagus is air di stended, a nonspecific finding. SALIVARY GLANDS: No gross abnormality seen. SOFT TISSUES OF THE SUPRAHYOID AND INFRAHYOID NECK: No mass or adenopathy. No acute findings. OSSEOUS STRUCTURES: No acute findings. IMPRESSION: 1. NO DEFINITE ACUTE PROCESS. 2. Air-distended thoracic esophagus noted.
[2018-02-03 20:05] VITALS: BP 192/80; PULSE 64; RESP 16; TEMP 96.9
== END 2018-02-03 20:05 | disposition home or self-care (01) ==
LOC: EC 16:48
DX: R13.10 Dysphagia, unspecified (principal); I48.91 Unspecified atrial fibrillation; E78.5 Hyperlipidemia, unspecified; I10 Essential (primary) hypertension; Z87.891 Personal history of nicotine dependence; Z79.01 Long term (current) use of anticoagulants; Z79.899 Other long term (current) drug therapy; Z88.8 Allergy status to other drugs, medicaments and biological substances; Z91.041 Radiographic dye allergy status; Z85.3 Personal history of malignant neoplasm of breast; Z90.11 Acquired absence of right breast and nipple; Z90.89 Acquired absence of other organs
CPT/HCPCS: 70490; 87081; 87430; 99284

== ENCOUNTER → 2018-05-20 | Outpatient (CLI) | payer MEDICARE, BC | END | disposition home or self-care (01) | LOC: LABWHC1 11:03 | PROVIDERS: ATTEND Family Medicine | DX: Z53.9 Procedure and treatment not carried out, unspecified reason (principal) ==

== ENCOUNTER → 2018-05-21 | Outpatient (CLI) | payer MEDICARE, BC ==
[2018-05-21 11:14] LABS: Basophils % (A) 0 %; Eosinophils # (A) 0.2 k/uL (0-0.7); Eosinophils % (A) 2 %; HCT 43.9 % (34.0-46.0); Lymphocytes % (A) 29 %; MCH 29.4 pg (25.0-35.0); MCHC 31.9 g/dL (31.0-37.0); MCV 92.4 fL (80.0-100.0); Mean Platelet Volume 7.3; Monocytes # (A) 0.6 k/uL (0-1.0); Monocytes % (A) 9 %; Neutrophils % (A) 57 %; Platelet Count 277 k/uL (150-450); RBC 4.75 m/uL (3.80-5.40); RDW 13.3 % (11.5-15.5); WBC 6.9 k/uL (3.8-10.6)
== END | disposition home or self-care (01) ==
LOC: LABWHC1 09:38
PROVIDERS: ATTEND Family Medicine
DX: E78.5 Hyperlipidemia, unspecified (principal); R11.0 Nausea
CPT/HCPCS: 36415; 85025

== ENCOUNTER → 2018-05-27 | Outpatient (CLI) | payer MEDICARE, BC ==
[2018-05-27 17:08] LABS: Albumin 4.5 g/dL (3.80-4.90); Albumin/Globulin Ratio 2.25 (1.20-2.10); Anion Gap 7.7 mmol/L (4.00-12.00); Calcium 9.2 mg/dL (8.7-10.3); Carbon Dioxide 21.3 mmol/L (21.6-31.8); LDL Cholesterol,Calculated 72.8 mg/dL (0.0-131.0); Potassium 4.8 mmol/L (3.5-5.5); Total Bilirubin 0.5 mg/dL (0.2-1.2); Total Protein 6.5 g/dL (6.2-8.2); VLDL Calculation 23.2 mg/dL (5.00-40.00)
== END | disposition home or self-care (01) ==
LOC: LABWHC1 08:15
PROVIDERS: ATTEND Family Medicine
DX: E78.5 Hyperlipidemia, unspecified (principal); R11.0 Nausea
CPT/HCPCS: 36415; 80053; 80061

== ENCOUNTER → 2018-07-08 | Outpatient (CLI) | payer MEDICARE, BC ==
[2018-07-08 20:01] LABS: Albumin 4.3 g/dL (3.80-4.90); Albumin/Globulin Ratio 1.87 (1.60-3.17); Bilirubin, Conjugated 0.2 mg/dL (0.20-0.40); Bilirubin,Unconjugated 0.5 mg/dL; Globulin 2.3 g/dL (1.6-3.3); Total Bilirubin 0.7 mg/dL (0.2-1.2); Total Protein 6.6 g/dL (6.2-8.2)
== END | disposition home or self-care (01) ==
LOC: LABWHC1 13:19
PROVIDERS: ATTEND Internal Medicine Cardiovascular Disease
DX: R74.8 Abnormal levels of other serum enzymes (principal)
CPT/HCPCS: 36415; 80076

== ENCOUNTER → 2018-08-20 | Outpatient (CLI) | payer MEDICARE, BC ==
[2018-08-20 11:55] LABS: Basophils # (A) 0.1 k/uL (0-0.2); Basophils % (A) 1 %; Eosinophils # (A) 0.2 k/uL (0-0.7); Eosinophils % (A) 2 %; HCT 45.4 % (34.0-46.0); Lymphocytes # (A) 2.6 k/uL (1.0-4.8); Lymphocytes % (A) 28 %; MCH 28.5 pg (25.0-35.0); MCHC 30.9 g/dL (31.0-37.0); MCV 92.1 fL (80.0-100.0); Mean Platelet Volume 6.5; Monocytes # (A) 0.7 k/uL (0-1.0); Monocytes % (A) 7 %; Neutrophils # (A) 5.5 k/uL (1.3-7.7); Neutrophils % (A) 61 %; Platelet Count 336 k/uL (150-450); RBC 4.93 m/uL (3.80-5.40); RDW 14.5 % (11.5-15.5); WBC 9.1 k/uL (3.8-10.6)
[2018-08-20 14:38] LABS: Erythrocyte Sedimentation Rate 8 mm/hr (0-20)
[2018-08-20 20:53] LABS: Albumin 5.1 g/dL (3.80-4.90); Albumin/Globulin Ratio 2.22 (1.60-3.17); Calcium 10.2 mg/dL (8.7-10.3); Globulin 2.3 g/dL (1.6-3.3); Potassium 4.6 mmol/L (3.5-5.5); Total Bilirubin 1.6 mg/dL (0.3-1.2); Total Protein 7.4 g/dL (6.2-8.2)
== END | disposition home or self-care (01) ==
LOC: LABWHC1 10:58
PROVIDERS: ATTEND Family Medicine
DX: R44.3 Hallucinations, unspecified (principal); R41.0 Disorientation, unspecified; R09.89 Other specified symptoms and signs involving the circulatory and respiratory systems
CPT/HCPCS: 36415; 80053; 82607; 83735; 84443; 85025; 85652

== ENCOUNTER 2018-12-07 07:28 | Emergency (ER) | payer MEDICARE, BC ==
[2018-12-07 07:35] VITALS: BP 137/83; PULSE 82; RESP 16; TEMP 97.9
--- NOTE | 2018-12-07 08:15 | ED ---
ENT HPI - General Source: patient, RN notes reviewed, old records reviewed Mode of arrival: wheelchair Limitations: no limitations <Maribel Lopez - Last Filed: 12/07/18 08:07> <Kalen Hansen - Last Filed: 12/07/18 08:40> - General Chief complaint: ENT Stated complaint: difficulty swallowing Time Seen by Provider: 12/07/18 07:37 - History of Present Illness Initial comments: Patient is an 88-year-old female presents emergency department today with history of chronic dysphasia. She reports she's been having dysphasia symptoms for the past 4 years. She states she is scheduled tomorrow for barium swallow study. Patient reports this morning upon awakening she felt like she was possibly going to choke. She states that she is able to tolerate fluids and has had no vomiting episodes. She denies any associated chest pressure breath. Patient states that she was diagnosed with a TIA approximately 2 weeks ago and that seems to make her swallowing somewhat worse. She was told that time she did have some paralysis of her swallowing muscles. Patient states that she has no significant difficulty breathing at this time. She denies any chest pain or concern for food bolus. She is tolerating her own secretions. 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 Patient reports she's been evaluated by multiple GI specialist as well as dentists and known is been able to offer solutions for her. Patient does have a barium swallow study scheduled for tomorrow morning. (Maribel Lopez) - Related Data Home Medications Medication Instructions Recorded Confirmed Atorvastatin [Lipitor] 10 mg PO HS 09/17/16 12/07/18 Cholecalciferol [Vitamin D3 (25 2,000 unit PO DAILY 09/17/16 12/07/18 Mcg = 1000 Iu)] Docusate [Colace] 100 - 200 mg PO DAILY 09/17/16 12/07/18 Apixaban [Eliquis] 2.5 mg PO BID 02/03/18 12/07/18 Losartan [Cozaar] 50 mg PO BID PRN 02/03/18 12/07/18 Megestrol [Megace] 40 mg PO TID 02/03/18 12/07/18 Vit C/E/Zn/Coppr/Lutein/Zeaxan 1 cap PO DAILY 12/07/18 12/07/18 [Preservision Areds 2 Softgel] amLODIPine [Norvasc] 2.5 mg PO DAILY 12/07/18 12/07/18 Previous Rx's Medication Instructions Recorded Metoprolol Tartrate [Lopressor] 50 mg PO BID #60 tab 05/22/17 Allergies Allergy/AdvReac Type Severity Reaction Status Date / Time scopolamine Allergy Unknown Verified 12/07/18 07:43 alendronate sodium AdvReac Migraines Verified 12/07/18 07:43 [From Fosamax] Iodinated Contrast- Oral and AdvReac Nausea & Verified 12/07/18 07:43 IV Dye Vomiting [Iodinated Contrast Media - Oral and] sertraline [From Zoloft] AdvReac Hallucinati Verified 12/07/18 07:43 ons Review of Systems ROS Other: All systems not noted in ROS Statement are negative. <Maribel Lopez - Last Filed: 12/07/18 08:07> ROS Other: All systems not noted in ROS Statement are negative. <Kalen Hansen - Last Filed: 12/07/18 08:40> ROS Statement: Those systems with pertinent positive or pertinent negative responses have been documented in the HPI. Past Medical History Past Medical History: Atrial Fibrillation, Cancer, Hyperlipidemia, Hypertension Additional Past Medical History / Comment(s): states "having trouble swallowing and food staying stuck in my throat and I can taste it", constipation,patient states she has "balance problems" and walks with a walker,hx breast CA 1979-no radiation or chemo,states History of Any Multi-Drug Resistant Organisms: None Reported Past Surgical History: Tonsillectomy Additional Past Surgical History / Comment(s): right side mastectomy Past Anesthesia/Blood Transfusion Reactions: No Reported Reaction Past Psychological History: No Psychological Hx Reported Smoking Status: Former smoker Past Alcohol Use History: None Reported Past Drug Use History: None Reported - Past Family History Mother Family Medical History: No Reported History Father Family Medical History: Unable to Obtain (Secondary to old age) Additional Family Medical History / Comment(s): aneurysm <Maribel Lopez - Last Filed: 12/07/18 08:07> General Exam Limitations: no limitations General appearance: alert, in no apparent distress Head exam: Present: atraumatic, normocephalic, normal inspection Eye exam: Present: normal appearance, PERRL, EOMI. Absent: scleral icterus, conjunctival injection, periorbital swelling ENT exam: Present: normal exam, other (Patient has no lower jaw ridge for proper denture fitting.) Neck exam: Present: normal inspection. Absent: tenderness, meningismus, lymphadenopathy Respiratory exam: Present: normal lung sounds bilaterally. Absent: respiratory distress, wheezes, rales, rhonchi, stridor Cardiovascular Exam: Present: regular rate, normal rhythm, normal heart sounds. Absent: systolic murmur, diastolic murmur, rubs, gallop, clicks GI/Abdominal exam: Present: soft, normal bowel sounds. Absent: distended, tenderness, guarding, rebound, rigid Extremities exam: Present: normal inspection, full ROM, normal capillary refill. Absent: tenderness, pedal edema, joint swelling, calf tenderness Back exam: Present: normal inspection Neurological exam: Present: alert, oriented X3, CN II-XII intact Psychiatric exam: Present: normal affect, normal mood Skin exam: Present: warm, dry, intact, normal color. Absent: rash <Maribel Lopez - Last Filed: 12/07/18 08:07> - General Exam Comments Initial Comments: This is an 88-year-old female. Alert and oriented 3. No distress. (Maribel Huynh) Course <Kalen Hansen - Last Filed: 12/07/18 08:40> Vital Signs 12/07/18 07:31 Temperature 97.9 F Pulse Rate 82 Respiratory 16 Rate Blood Pressure 137/83 O2 Sat by Pulse 100 Oximetry - Reevaluation(s) Reevaluation #1: 12/07/18 08:39 PA supervision: I proceeded [id number] evaluation the patient did present with complaints of old fitting dentures difficulty chewing and swallowing and reflux. She hasn't worked up for this in the past and doesn't fact have a modified barium swallow scheduled for tomorrow. She is awake alert oriented 3 she talks without any difficulty. Examination reveals a clear oral pharynx no stridor JVD or bruits. She does have some left facial asymmetry which is thought to be secondary to an event that happened months ago per her daughter. No other modifying factors this time the patient will be discharged and appointment well for the swallow study. And follow-up with her doctor. I do agree with the assessment and plan (Kalen Hansen) Medical Decision Making <An Lopezily - Last Filed: 12/07/18 08:07> - Medical Decision Making Patient is 88 year old female presents today for chronic dysphagia. Patient has had symptoms for over 4 years. She is scheduled tomorrow for a barium swell study. There is no significant anatomical and rales that she's signing out secretions. I discussed Patient is follow-up with her barium swallow study tomorrow. She has a poor fitting dentures and is complaining of spasm reflux. Discussed monitoring her diet medications she is doing a soft food. Diet. Patient's family understands treatment plan will comply. Return parameters were discussed. (Maribel Lopez) Disposition Is patient prescribed a controlled substance at d/c from ED?: No Time of Disposition: 08:14 <Maribel Lopez - Last Filed: 12/07/18 08:07> <Kalen Hansen - Last Filed: 12/07/18 08:40> Clinical Impression: Dysphagia Disposition: HOME SELF-CARE Condition: Good Instructions (If sedation given, give patient instructions): Chronic Dysphagia (DC) Additional Instructions: Patient advised to follow-up with her barium swallow study tomorrow. Patient should have a parade air soft food diet until then. Return to the emergency department if any alarming signs or symptoms occur. Referrals: Belkis Buchanan MD [Primary Care Provider] - 1-2 days
== END 2018-12-07 08:18 | disposition home or self-care (01) ==
LOC: EC 07:28
DX: R13.10 Dysphagia, unspecified (principal); I48.91 Unspecified atrial fibrillation; E78.5 Hyperlipidemia, unspecified; I10 Essential (primary) hypertension; Z85.3 Personal history of malignant neoplasm of breast; Z86.73 Personal history of transient ischemic attack (TIA), and cerebral infarction without residual deficits; Z87.891 Personal history of nicotine dependence; Z79.01 Long term (current) use of anticoagulants; Z79.899 Other long term (current) drug therapy; Z88.8 Allergy status to other drugs, medicaments and biological substances; Z91.041 Radiographic dye allergy status
CPT/HCPCS: 99284

== ENCOUNTER → 2018-12-08 | Outpatient (CLI) | payer MEDICARE, BC ==
--- NOTE | 2018-12-08 12:57 | FL ---
MODIFIED SWALLOW / DEGLUTITION STUDY DATE OF EXAM: 12/08/2018 CLINICAL HISTORY: 88-year-old female Dysphagia. Ingested material coming up in the throat. TECHNIQUE: Deglutition study is performed utilizing thin liquid barium, honey and nectar thick liqui d barium, barium thick applesauce, and barium coated cracker. Total fluoroscopy time: 2 minutes 19 seconds. Total images: None. Real-time fluoroscopy support was provided to speech pathology. COMPARISON: None. FINDINGS: The oral and pharyngeal phases show satisfactory initiation and propagation with all modalities teste d. Normal mastication is seen with solid modalities tested though the patient is edentulous. There is no evidence of penetration or aspiration with any modality tested. Mild residual seen with pureed consistency in the piriform sinus region. Marked thickening of the cricopharyngeus is noted. IMPRESSION: 1. Functional swallow. 2. Fairly marked CP hypertrophy. Correlate for possible underlying severe GERD as the source of reina ent's symptoms. 3. Please refer to speech therapist notes for further details if necessary.
== END | disposition home or self-care (01) ==
LOC: RADFLMAIN 10:54
PROVIDERS: ATTEND Internal Medicine
DX: R13.10 Dysphagia, unspecified (principal)
CPT/HCPCS: 74230

== ENCOUNTER → 2019-02-09 | Outpatient (CLI) | payer MEDICARE, BC ==
[2019-02-09 12:03] LABS: Anisocytosis Slight; Basophils # (A) 0.1 k/uL (0-0.2); Basophils % (A) 1 %; Eosinophils # (A) 0.2 k/uL (0-0.7); Eosinophils % (A) 3 %; HCT 42.6 % (34.0-46.0); HGB 14.2 gm/dL (11.4-16.0); Lymphocytes # (A) 1.9 k/uL (1.0-4.8); Lymphocytes % (A) 29 %; MCH 29.2 pg (25.0-35.0); MCHC 33.4 g/dL (31.0-37.0); MCV 87.6 fL (80.0-100.0); Mean Platelet Volume 6.9; Monocytes # (A) 0.4 k/uL (0-1.0); Monocytes % (A) 6 %; Neutrophils % (A) 59 %; Platelet Count 266 k/uL (150-450); RBC 4.86 m/uL (3.80-5.40); RDW 16.1 % (11.5-15.5); WBC 6.8 k/uL (3.8-10.6)
[2019-02-09 17:24] LABS: Vitamin D 25 Hydroxy 26.3 ng/mL (30.0-100.0)
[2019-02-09 17:30] LABS: African American GFR (CKD) 65.7 (60.0-200.0); Anion Gap 10.7 mmol/L (4.00-12.00); BUN/Creat Ratio 26.67 Ratio (12.00-20.00); Calcium 10.4 mg/dL (8.7-10.3); Carbon Dioxide 25.3 mmol/L (21.6-31.8); Potassium 4.4 mmol/L (3.5-5.5); Total Bilirubin 0.8 mg/dL (0.2-1.2); Total Protein 7.1 g/dL (6.2-8.2)
[2019-02-09 17:47] LABS: Albumin 5.1 g/dL (3.80-4.90); Albumin/Globulin Ratio 2.55 (1.60-3.17)
== END | disposition home or self-care (01) ==
LOC: LABWHC1 11:19
PROVIDERS: ATTEND Family Medicine
DX: I10 Essential (primary) hypertension (principal); E78.5 Hyperlipidemia, unspecified; G62.9 Polyneuropathy, unspecified; M81.0 Age-related osteoporosis without current pathological fracture; R79.89 Other specified abnormal findings of blood chemistry
CPT/HCPCS: 36415; 80053; 80061; 82306; 82607; 84439; 84443; 85025

== ENCOUNTER 2019-06-26 02:11 | Emergency (ER) | payer OTHER, MEDICARE, BC ==
[2019-06-26] MEDS ORDERED: ONDANSETRON 4 MG/2 ML VIAL IVP STA (02:35)
[2019-06-26] MEDS ORDERED: SODIUM CHLORIDE 0.9% 500 ML 500 ML IV STA (02:35)
[2019-06-26 02:38] VITALS: PULSE 86
--- NOTE | 2019-06-26 02:38 | ED ---
Nausea/Vomiting/Diarrhea HPI - General Stated complaint: N/V/D Time Seen by Provider: 06/26/19 02:18 - History of Present Illness Initial comments: Patient is an 88-year-old female presenting to the emergency Department with complaints of nausea, vomiting, diarrhea 1 hour. Patient states she's been dealing with some constipation and her gave her a drink called "brown bomber" consisting of milk of magnesia, prune juice, coffee. Patient states after she drank this she began having diarrhea as well as nausea and vomiting. Patient arrives in the ER still vomiting. She denies any pain, shortness of breath, chest pain, abdominal pain. She has no other complaints at this time. Upon arrival to ER, vital signs are stable. - Related Data Home Medications Medication Instructions Recorded Confirmed Atorvastatin [Lipitor] 10 mg PO HS 09/17/16 12/07/18 Cholecalciferol [Vitamin D3 (25 2,000 unit PO DAILY 09/17/16 12/07/18 Mcg = 1000 Iu)] Docusate [Colace] 100 - 200 mg PO DAILY 09/17/16 12/07/18 Apixaban [Eliquis] 2.5 mg PO BID 02/03/18 12/07/18 Losartan [Cozaar] 50 mg PO BID PRN 02/03/18 12/07/18 Megestrol [Megace] 40 mg PO TID 02/03/18 12/07/18 Vit C/E/Zn/Coppr/Lutein/Zeaxan 1 cap PO DAILY 12/07/18 12/07/18 [Preservision Areds 2 Softgel] amLODIPine [Norvasc] 2.5 mg PO DAILY 12/07/18 12/07/18 Previous Rx's Medication Instructions Recorded Metoprolol Tartrate [Lopressor] 50 mg PO BID #60 tab 05/22/17 Allergies Allergy/AdvReac Type Severity Reaction Status Date / Time scopolamine Allergy Unknown Verified 12/07/18 07:43 alendronate sodium AdvReac Migraines Verified 12/07/18 07:43 [From Fosamax] Iodinated Contrast Media AdvReac Nausea & Verified 12/07/18 07:43 [Iodinated Contrast Media - Vomiting Oral and] sertraline [From Zoloft] AdvReac Hallucinati Verified 07/08/19 07:43 ons Review of Systems ROS Statement: Those systems with pertinent positive or pertinent negative responses have been documented in the HPI. ROS Other: All systems not noted in ROS Statement are negative. Past Medical History Past Medical History: Atrial Fibrillation, Cancer, Hyperlipidemia, Hypertension Additional Past Medical History / Comment(s): states "having trouble swallowing and food staying stuck in my throat and I can taste it", constipation,patient states she has "balance problems" and walks with a walker,hx breast CA 1979-no radiation or chemo,states History of Any Multi-Drug Resistant Organisms: None Reported Past Surgical History: Tonsillectomy Additional Past Surgical History / Comment(s): right side mastectomy Past Anesthesia/Blood Transfusion Reactions: No Reported Reaction Past Psychological History: No Psychological Hx Reported Smoking Status: Former smoker Past Alcohol Use History: None Reported Past Drug Use History: None Reported - Past Family History Mother Family Medical History: No Reported History Father Family Medical History: Unable to Obtain (Secondary to old age) Additional Family Medical History / Comment(s): aneurysm General Exam - General Exam Comments Initial Comments: GENERAL: Well-appearing, actively vomiting. HEAD: Atraumatic, normocephalic. EYES: Pupils equal round and reactive to light, extraocular movements intact, sclera anicteric, conjunctiva are normal. ENT: TMs normal, nares patent, oropharynx clear without exudates. Moist mucous membranes. NECK: Normal range of motion, supple without lymphadenopathy or JVD. LUNGS: Breath sounds clear to auscultation bilaterally and equal. No wheezes rales or rhonchi. HEART: Regular rate and rhythm without murmurs, rubs or gallops. ABDOMEN: Soft, nontender, normoactive bowel sounds. No guarding, no rebound. No masses appreciated. EXTREMITIES: Normal range of motion, no pitting or edema. No clubbing or cyanosis. NEUROLOGICAL: Normal speech, normal gait. PSYCH: Normal mood, normal affect. SKIN: Warm, Dry, normal turgor, no rashes or lesions noted. Course Vital Signs 06/26/19 02:20 Temperature 96.8 F L Pulse Rate 86 Blood Pressure 152/86 O2 Sat by Pulse 98 Oximetry Medical Decision Making - Medical Decision Making Patient is an 88-year-old female presenting with nausea, vomiting, diarrhea for the past one hour after she took "a brown bomber drink." Patient's vitals are stable. Patient was given Zofran IM and reports improvement in her symptoms. We attempted to check a CBC / CMP however we were unable to get lightheaded started on patient. Patient and family were okay to be discharged without this blood work. Patient remained stable. She denies any further nausea. She is wishing to go home. Return parameters were discussed with the patient and her daughter and they both verbalized understanding. Patient does have a follow-up appointment rescheduled on Friday. Case discussed with Dr. Mayberry. Disposition Clinical Impression: Nausea & vomiting, Diarrhea Disposition: HOME SELF-CARE Condition: Stable Instructions (If sedation given, give patient instructions): Acute Nausea and Vomiting (ED) Additional Instructions: Please return to the Emergency Department if symptoms worsen or any other concerns. Follow-up with PCP on Friday as discussed. May take Zofran as prescribed for nausea. Is patient prescribed a controlled substance at d/c from ED?: No Referrals: Анна Hinojosa MD [STAFF PHYSICIAN] - 1-2 days
[2019-06-26] MEDS ORDERED: ONDANSETRON 4 MG/2 ML VIAL IM STA (03:33)
[2019-06-26] MEDS ORDERED: ONDANSETRON 4 MG ODT STARTER PACK 2 TAB BTL PO STA (04:08)
[2019-06-26 04:54] VITALS: BP 152/97; RESP 20; TEMP 97.3
== END 2019-06-26 04:40 | disposition home or self-care (01) ==
LOC: EC 02:11
DX: R11.2 Nausea with vomiting, unspecified (principal); R19.7 Diarrhea, unspecified; I48.91 Unspecified atrial fibrillation; I10 Essential (primary) hypertension; E78.5 Hyperlipidemia, unspecified; Z79.01 Long term (current) use of anticoagulants; Z79.899 Other long term (current) drug therapy; Z91.048 Other nonmedicinal substance allergy status; Z88.8 Allergy status to other drugs, medicaments and biological substances; Z87.891 Personal history of nicotine dependence; Z85.3 Personal history of malignant neoplasm of breast; Z90.11 Acquired absence of right breast and nipple
CPT/HCPCS: 99284; 96372; J2405; S0119

== ENCOUNTER 2019-07-19 08:34 | Day surgery (SDC) | payer MEDICARE, BC ==
[2019-07-16 10:53] VITALS: BMI 18.1
[~2019-07-19 08:34] MED LIST changes: +LIDOCAINE 1% 20 ML VIAL (10MG/ML) FOR IV START INTRADERMA PRN; +MIDAZOLAM 2 MG/2 ML VIAL IV PRN
[2019-07-19 09:29] VITALS: RESP 16; TEMP 97.5
[2019-07-19] MEDS ORDERED: LIDOCAINE 1% INJ 10MG/ML (20 ML MDV) ONE (10:23)
[2019-07-19] MEDS ORDERED: PROPOFOL 10 MG/ML 20 ML VIAL IV ONE (10:23)
--- NOTE | 2019-07-19 10:30 | P.GSHP ---
History of Present Illness H&P Date: 07/19/19 Chief Complaint: GERD, Constipation This 87-year-old female presents today for EGD colonoscopy. She's had issues with GERD and constipation. Past Medical History Past Medical History: Atrial Fibrillation, Cancer, GERD/Reflux, Hyperlipidemia, Hypertension Additional Past Medical History / Comment(s): states "having trouble swallowing and food staying stuck in my throat and I can taste it", constipation,patient states she has "balance problems" USES WHEELCHAIR ,hx breast CA 1979-no radiation or chemo" MACULAR DEGENERATION History of Any Multi-Drug Resistant Organisms: None Reported Past Surgical History: Tonsillectomy Additional Past Surgical History / Comment(s): RIGHT mastectomy, COLONOSCOPY, EGD Past Anesthesia/Blood Transfusion Reactions: No Reported Reaction Smoking Status: Former smoker - Past Family History Mother Family Medical History: No Reported History Father Family Medical History: Unable to Obtain Additional Family Medical History / Comment(s): aneurysm Sister(s) Family Medical History: Cancer Medications and Allergies Home Medications Medication Instructions Recorded Confirmed Type Atorvastatin [Lipitor] 10 mg PO HS 09/17/16 07/19/19 History Cholecalciferol [Vitamin D3 (25 3,000 unit PO DAILY 09/17/16 07/19/19 History Mcg = 1000 Iu)] Docusate [Colace] 100 mg PO BID 09/17/16 07/19/19 History Metoprolol Tartrate [Lopressor] 50 mg PO BID #60 tab 05/22/17 07/19/19 Rx Apixaban [Eliquis] 2.5 mg PO BID 02/03/18 07/19/19 History Losartan [Cozaar] 25 mg PO DAILY 02/03/18 07/19/19 History Megestrol [Megace] 40 mg PO TID 02/03/18 07/19/19 History Vit C/E/Zn/Coppr/Lutein/Zeaxan 1 cap PO DAILY 12/07/18 07/19/19 History [Preservision Areds 2 Softgel] amLODIPine [Norvasc] 2.5 mg PO DAILY 12/07/18 07/19/19 History Diclofenac Potassium [Cataflam] 50 mg PO BID PRN 07/16/19 07/19/19 History Omeprazole [PriLOSEC] 40 mg PO DAILY 07/16/19 07/19/19 History Ondansetron [Zofran] 4 mg PO Q6H PRN 07/16/19 07/19/19 History Allergies Allergy/AdvReac Type Severity Reaction Status Date / Time scopolamine Allergy Rapid Verified 07/19/19 09:11 Heart Rate alendronate sodium AdvReac Migraines Verified 07/19/19 09:11 [From Fosamax] Iodinated Contrast Media AdvReac Nausea & Verified 07/19/19 09:11 [Iodinated Contrast Media - Vomiting Oral and] sertraline [From Zoloft] AdvReac Hallucinati Verified 07/19/19 09:11 ons Surgical - Exam Vital Signs Temp Pulse Resp BP Pulse Ox 97.5 F L 70 16 159/73 99 07/19/19 09:05 07/19/19 09:05 07/19/19 09:05 07/19/19 09:05 07/19/19 09:05 - General well developed, well nourished, no distress - Eyes PERRL - ENT normal pinna - Neck no masses - Respiratory normal expansion - Cardiovascular Rhythm: regular - Abdomen Abdomen: soft, non tender Assessment and Plan Assessment: . Constipation. We'll perform EGD and colonoscopy
--- NOTE | 2019-07-19 10:39 | P.OP ---
Date of Procedure: 07/19/19 Preoperative Diagnosis: GERD Constipation Postoperative Diagnosis: Antral gastritis Hiatal hernia Esophagitis Procedure(s) Performed: EGD Aborted Colonoscopy Anesthesia: MAC Surgeon: Dennis Marshall Pathology: other (Antrum, esophagus) Condition: stable Disposition: PACU Description of Procedure: Patient's placed on the endoscopy table in the lateral position. She received IV sedation. The gastroscope placed oropharynx passed in the esophagus and into the stomach. Scope was then placed the pylorus. The first and second portion of the duodenum appeared normal. The scope was then brought back the antrum this was mildly inflamed. A biopsies performed. The scope was then retroflexed and the remainder of the stomach appeared normal. Patient had a moderate size hiatal hernia. The GE junction was at 38 cm. The distal esophagus mildly inflamed a biopsies performed. The proximal esophagus appeared normal. Scope was withdrawn for patient. Patient was scheduled for colonoscopy. However her prep was inadequate. Her colonoscopy was canceled. She had a large amount liquid stool within the rectum.
[2019-07-19 11:11] VITALS: BP 134/67; PULSE 72
== END 2019-07-19 11:36 | disposition home or self-care (01) ==
LOC: ORWHC2ENDO 08:34
PROVIDERS: ATTEND Surgery
DX: K21.0 Gastro-esophageal reflux disease with esophagitis (principal); K29.50 Unspecified chronic gastritis without bleeding; K44.9 Diaphragmatic hernia without obstruction or gangrene; K59.00 Constipation, unspecified; K64.4 Residual hemorrhoidal skin tags; K64.8 Other hemorrhoids; Z53.8 Procedure and treatment not carried out for other reasons; I48.91 Unspecified atrial fibrillation; E78.5 Hyperlipidemia, unspecified; I10 Essential (primary) hypertension; R26.9 Unspecified abnormalities of gait and mobility; H35.30 Unspecified macular degeneration; Z85.3 Personal history of malignant neoplasm of breast; Z90.89 Acquired absence of other organs; Z90.11 Acquired absence of right breast and nipple; Z98.890 Other specified postprocedural states; Z87.891 Personal history of nicotine dependence; Z82.49 Family history of ischemic heart disease and other diseases of the circulatory system; Z80.9 Family history of malignant neoplasm, unspecified; Z79.899 Other long term (current) drug therapy; Z79.01 Long term (current) use of anticoagulants; Z88.8 Allergy status to other drugs, medicaments and biological substances; Z91.041 Radiographic dye allergy status; Z97.2 Presence of dental prosthetic device (complete) (partial)
CPT/HCPCS: 88305; 43239; J2001; J2704